=== PATIENT | female | born 1950 | race Caucasian/White ===

== ENCOUNTER → 2016-08-06 | Outpatient (CLI) | payer BC ==
[2016-08-06 09:17] LABS: BLOOD UREA NITROGEN 19 mg/dl (7-18); BUN/CREATININE RATIO 21.3 (10-20); CALCIUM 9.1 mg/dl (8.5-10.1); CARBON DIOXIDE 28 mmol/L (21-32); CHLORIDE 105 mmol/L (98-107); CHOLESTEROL 239 mg/dl (0-200); CREATININE 0.87 mg/dl (0.60-1.20); GLUCOSE 94 mg/dl (70-99); POTASSIUM 4.1 mmol/L (3.5-5.1); SODIUM 141 mmol/L (136-145); TRIGLYCERIDES 67 mg/dl (0-150); VERY LOW DENSITY LIPOPROT CALC 13 mg/dl
[2016-08-06 09:21] LABS: CHOLESTEROL/HDL RATIO 3.6; HDL CHOLESTEROL 67 mg/dl; LDL CHOLESTEROL CALCULATED 159 mg/dl
== END | disposition home or self-care (01) ==
LOC: C.LAB 07:48
PROVIDERS: ATTEND Internal Medicine
DX: E78.5 Hyperlipidemia, unspecified (principal); E55.9 Vitamin D deficiency, unspecified; M85.80 Other specified disorders of bone density and structure, unspecified site

== ENCOUNTER → 2016-12-06 | Outpatient (CLI) | payer BC ==
--- NOTE | 2016-12-09 08:25 | MAMMOGRAPHY REPORT ---
BILATERAL DIGITAL SCREENING MAMMOGRAM WITH CAD: 12/06/2016 CLINICAL HISTORY: Routine screening. TECHNIQUE: Bilateral CC, MLO and right XCCL views were obtained. Current study was also evaluated wi th a Computer Aided Detection (CAD) system. COMPARISON: Comparison is made to exams dated: 12/04/2015 mammogram, 12/02/2014 mammogram, 11/26/2013 ma mmogram, 11/23/2012 mammogram, 11/15/2011 mammogram, and 11/11/2010 mammogram - [facility] ter. BREAST COMPOSITION: The tissue of both breasts is heterogeneously dense, which may obscure small mas ses. FINDINGS: There are benign-appearing rounded calcifications scattered bilaterally. No new suspicious mass, architectural distortion or cluster of microcalcifications is seen. IMPRESSION: ACR BI-RADS CATEGORY 1: NEGATIVE There is no mammographic evidence of malignancy. A 1 year screening mammogram is recommended. The pa tient will receive written notification of the results. Approximately 10% of breast cancers are not detected with mammography. A negative mammographic report should not delay biopsy if a clinically suggestive mass is present. Ana Wynn M.D. ay/:12/06/2016 12:09:53 Community Ambassador: Eliceo DIANA(Dylan)(Laura), [facility] letter sent: Normal 1/2 BI-RADS Code: ACR BI-RADS Category 1: Negative
== END | disposition home or self-care (01) ==
LOC: C.MAMM 10:21
PROVIDERS: ATTEND Obstetrics & Gynecology
DX: Z12.31 Encounter for screening mammogram for malignant neoplasm of breast (principal)

== ENCOUNTER → 2017-05-27 | Outpatient (CLI) | payer OTHER ==
[2017-05-27 09:31] LABS: BLOOD UREA NITROGEN 17 mg/dl (7-18); CALCIUM 8.8 mg/dl (8.5-10.1); CARBON DIOXIDE 29 mmol/L (21-32); CREATININE 0.96 mg/dl (0.60-1.20); GLUCOSE 90 mg/dl (70-99); SODIUM 136 mmol/L (136-145)
[2017-05-27 09:34] LABS: CHOLESTEROL 253 mg/dl (0-200); LDL CHOLESTEROL CALCULATED 169 mg/dl
== END | disposition home or self-care (01) ==
LOC: C.LAB 08:48
PROVIDERS: ATTEND Internal Medicine
DX: Z11.59 Encounter for screening for other viral diseases (principal); E78.5 Hyperlipidemia, unspecified; E55.9 Vitamin D deficiency, unspecified

== ENCOUNTER → 2017-12-08 | Outpatient (CLI) | payer OTHER ==
--- NOTE | 2017-12-11 07:45 | MAMMOGRAPHY REPORT ---
BILATERAL DIGITAL SCREENING MAMMOGRAM TOMOSYNTHESIS WITH CAD: 12/08/2017 CLINICAL HISTORY: Routine screening. Patient has no complaints. TECHNIQUE: The study was acquired using full field digital technology and interpreted from soft copy. Breast tomosynthesis in addition to standard 2D mammography was performed. Current study was also ev aluated with a Computer Aided Detection (CAD) system. COMPARISON: Comparison is made to exams dated: 12/06/2016 mammogram, 12/04/2015 mammogram, 12/02/2014 m ammogram, 11/26/2013 mammogram, 11/11/2010 mammogram - [facility], and 10/22/2008. BREAST COMPOSITION: The tissue of both breasts is heterogeneously dense, which may obscure small mass es. FINDINGS: No suspicious masses, calcifications, or areas of architectural distortion are noted in either breast . There has been no significant interval change compared to prior exams. Note that positioning is so mewhat suboptimal due to pectus excavatum deformity of the chest. There is stable asymmetry in breas t size, right breast smaller than left. IMPRESSION: ACR BI-RADS CATEGORY 1: NEGATIVE There is no mammographic evidence of malignancy. A 1 year screening mammogram is recommended.( [id number]) The patient will receive written notification of the results. Some breast cancers are not detected with mammography. A negative mammographic report should not verónica y biopsy if a clinically suggestive mass is present. Lucita Lee M.D. /:12/08/2017 15:31:49 Bristle Machine Operator: Zahira [place], [facility] letter sent: Normal 1/2 BI-RADS Code: ACR BI-RADS Category 1: Negative
== END | disposition home or self-care (01) ==
LOC: C.MAMM 09:01
PROVIDERS: ATTEND Internal Medicine
DX: Z12.31 Encounter for screening mammogram for malignant neoplasm of breast (principal)

== ENCOUNTER 2020-09-12 15:16 | Inpatient (IN) ==
[2020-09-12] MEDS ORDERED: MoRPHine SULFATE 4 MG/ML 1 ML CARP\\VIAL IV PRN (15:36)
[2020-09-12] MEDS ORDERED: MoRPHine SULFATE 2 MG/ML CARP IV PRN ×2 (15:36→20:14)
[2020-09-12] MEDS ORDERED: ACETAMINOPHEN 1,000 MG/100 ML VIAL IV STA (15:38)
[2020-09-12] MEDS ORDERED: SODIUM CHLORIDE 0.9% 1000ML 1,000 ML IV SCH (15:45)
[2020-09-12 16:33] LABS: Basophils # (auto) 0.02 K/uL (0-0.2); Basophils % (auto) 0.3 %; Eosinophils # (auto) 0.02 K/uL (0-0.5); Eosinophils % (auto) 0.3 %; Hematocrit (blood only) 39.3 % (37-47); Hemoglobin 13.5 g/dL (12.0-16.0); Immature Granulocytes # (auto) 0.02 K/uL (0.00-0.02); Immature Granulocytes % (auto) 0.3 %; Mean Corpuscular Hemoglobin 30.7 pg (25-34); Mean Corpuscular Hgb Conc 34.4 g/dL (32-36); Mean Corpuscular Volume 89.3 fL (80-100); Mean Platelet Volume 10.3 fL (7.4-10.4); Monocytes # (auto) 0.39 K/uL (0.11-0.59); Monocytes % (auto) 4.9 %; Neutrophils # (auto) 6.74 K/uL (1.4-6.5); Neutrophils % (auto) 84.2 %; Platelet Count 287 K/uL (130-400); RDW Coefficient of Variation 13.3 % (11.5-14.5); RDW Standard Deviation 43.8 fL (36.4-46.3); White Blood Count 7.99 K/uL (4.8-10.8)
[2020-09-12 16:40] LABS: Appearance Urine Clear (Clear); Bilirubin Urine Negative (Negative); Blood Urine Negative (Negative); Color Urine Yellow; Glucose Urine UA Negative (Negative); Ketones Urine Negative (Negative); Leukocyte Esterase Urine Negative (Negative); Nitrite Urine Negative (Negative); Protein Urine Negative (Negative); Specific Gravity Urine 1.011 (1.000-1.030); Urobilinogen Urine Negative (Negative); pH Urine 8.5 (4.5-7.5)
[2020-09-12 16:45] LABS: Partial Thromboplastin Ratio 0.9; Partial Thromboplastin Time 23.1 Seconds (21.0-31.0); Prothrombin Time 10.3 Seconds (9.0-12.0)
[2020-09-12 16:50] LABS: Albumin Level 4.2 gm/dl (3.4-5.0); BUN Creatinine Ratio 24.2 (10-20); Calcium 8.6 mg/dl (8.5-10.1); Creatinine Clr Calc Pharmacy 63.6 ml/min; Est GFR (African American) 82.8; Est GFR (Non-African American) 71.4; Potassium 3.6 mmol/L (3.5-5.1)
[2020-09-12 16:53] LABS: Albumin Globulin Ratio 0.9 (0.9-2); Bilirubin,Total 0.5 mg/dl (0.2-1); Globulin 4.6 gm/dl (2.5-4.0); Total Protein 8.8 gm/dl (6.4-8.2)
--- NOTE | 2020-09-12 16:56 | XRay Report ---
SINGLE VIEW PELVIS; 2 VIEWS LEFT HIP CLINICAL HISTORY: Fall with left hip injury. FINDINGS: An AP view of the pelvis with AP and crosstable lateral views of the left hip are obtained. No prior studies are available for comparison at the time of dictation. The skeletal structures are osteopenic. No fracture is seen involving the right hip or the bony pelvis. There is a minimally disp laced intertrochanteric fracture of the left proximal femur with overlying soft tissue edema. Mild to moderate degenerative joint space narrowing is seen in both hips. Degenerative sclerosis is noted in the sacroiliac joints and pubic symphysis. A Monroy catheter is in place. A phlebolith is noted in th e right hemipelvis. Moderate fecal retention is seen throughout the imaged colon. IMPRESSION: Intertrochanteric fracture of the left femur as above. Electronically signed by: Reed Turner M.D. 09/12/2020 4:54 PM
--- NOTE | 2020-09-12 16:57 | XRay Report ---
SINGLE VIEW CHEST CLINICAL HISTORY: Fall. Hip fracture. Preoperative examination. FINDINGS: An AP, portable, semierect chest radiograph is obtained. No prior studies are available for comparison at the time of dictation. The cardiomediastinal silhouette is top normal for projection. There is mild bibasilar scarring/atelectasis. No airspace consolidation or large pleural effusion is identified. No pneumothorax is seen. The skeletal structures are osteopenic. The bony thorax is vini sly intact. IMPRESSION: No acute cardiopulmonary abnormality. ACT 112: Negative or not required by law. Electronically signed by: Reed Turner M.D. 09/12/2020 4:56 PM
--- NOTE | 2020-09-12 17:04 | Emergency Department Note ---
Impression & Plan Fracture of left hip, Laceration of skin of left palm, Fall ED Provider Note NAME: RUDDY BELTRAN AGE: 70 SEX: F ARRIVES VIA: Ambulance INFORMANT: Patient, ED PROVIDER(S): Kimo Deleon MD CHIEF COMPLAINT: Fall, left hip pain. PLAN: Disposition: Admit MEDICAL DECISION MAKING: The patient is a pleasant 70-year-old woman with a past medical history of hypertension, hyperlipidemia, vitamin D deficiency and osteopenia who presents emergency department with left hip pain with inability to walk following a mechanical fall where she tripped over the door to her comb fixer falling onto her left hip. She denies head strike or LOC. She is not on anticoagulation. She also reports having a minor cut to her hand which she cut when the ball she was holding broke as well. Prior today she denies any recent illness including fevers, chills, cough, congestion, GI or symptoms. She feels her Tetanus is UTD. On arrival patient is uncomfortable but no acute distress, afebrile stable vital signs. She has mild tenderness of the left inguinal region with external rotation and slight shortening of the left leg. Distal PMS intact. Left palm with 3.5 cm superficial laceration of the ulnar aspect of the left palm limited to dermis of palm with hemostasis. Plain films of the hip and pelvis confirmed a left intertrochanteric hip fracture. Chest x-ray negative for acute cardiopulmonary process. WBC, H/H and platelets within normal limits. Chemistry without metabolic acidosis. Electrolytes and LFTs unremarkable. UA without convincing evidence of infection. Case was discussed with Dr. Tatum [facility] on-call, and is aware of the patient. Case was discussed with KATHE Coles hospitalist, who will evaluate the patient for admission. Triage Nursing notes reviewed and agree them. Prior medical records reviewed Vital Signs: reviewed and remarkable for no significant abnormalities Differential diagnosis: Fracture, subluxation, dislocation, contusion, ligamentous injury, neurovascular, compartment syndrome, rhabdomyolysis, as well as other pathologies. ER treatment provided: See below. Diagnostics interpreted by me: Cardiac Monitoring: An order for continuous cardiac monitoring was placed and demonstrated NSR, 71 bpm, no ectopy. Laboratory studies: See below Imaging studies: See below Consultation(s): KATHE Coles hospitalist Dr. Tatum, [facility]. HPI: The patient is a pleasant 70-year-old woman with a past medical history of hypertension, hyperlipidemia, vitamin D deficiency and osteopenia who presents emergency department with left hip pain with inability to walk following a mechanical fall where she tripped over the door to her comb fixer falling onto her left hip. She also reports having a minor cut to her hand which she cut when the ball she was holding broke as well. Prior today she denies any recent illness including fevers, chills, cough, congestion, GI or symptoms. ROS: See above HPI for pertinent positives & negatives. A total of 10 systems reviewed and were otherwise negative. PAST MEDICAL HISTORY:See Below PAST SURGICAL HISTORY:See Below FAMILY HISTORY:See Below SOCIAL HISTORY:See Below HOME MEDICATIONS:See Below ALLERGIES:See Below VITALS:See Below PHYSICAL EXAMINATION: GENERAL: Awake, alert, uncomfortable-appearing, in no distress HENT: Normocephalic, atraumatic. Oropharynx unremarkable. EYES: Normal conjunctiva. Sclera non-icteric. NECK: Supple. No nuchal rigidity. FROM. No JVD. RESPIRATORY: Clear to auscultation. CARDIAC: Regular rate, normal rhythm. Extremities warm and well perfused. Pulses equal. ABDOMEN: Soft, non-distended. No tenderness to palpation. No rebound or guarding. No masses. RECTAL: Deferred. MUSCULOSKELETAL: Chest examination reveals no tenderness. The back is symmetrical on inspection without obvious abnormality. There is no CVA tenderness to palpation. No joint edema. UPPER EXTREMITIES: Left palm with 3.5 cm superficial laceration of the ulnar aspect of the left palm limited to dermis of palm with hemostasis. No contusion, deformity, tenderness of hand. FROM intact. LOWER EXTREMITIES: Mild tenderness of the left inguinal region with external rotation and slight shortening of the left leg. Distal PMS intact. Calves are equal size bilaterally and non-tender. No edema. No discoloration. NEURO: Normal sensorium. No sensory or motor deficits noted. SKIN: No rash or jaundice noted. ED Course: Procedures: Location: Ulnar aspect of left palm. Total length: 3.5cm Complexity: Simple (limited to dermis) Verbal consent was obtained after the risks and benefits were explained, including but not limited to bleeding, scarring, infection, pain, and bone/joint/nerve damage. At this time, the risks of the procedure are less than the risks of NOT performing the procedure. A time out was taken and the correct patient and site identified. Copious irrigation was performed using sterile saline. The wound was explored for foreign bodies and none found. Examination revealed no injury to deep structures such as tendons, bone, or significant blood vessels. Debridement was not performed. The wound edges were approximated using 6 steri-strips. Hemostasis and excellent approximation was achieved. Sterile dressing applied. Detailed wound care instructions and signs and symptoms of infection reviewed with the patient. No complications and the patient tolerated the procedure well. Kimo Deleon MD Past Med/Surg History Medical History (Updated 09/12/20 @ 23:53 by Kimo Deleon MD) Hyperlipidemia Hypertension Osteopenia Vitamin D deficiency Surgical History History of appendectomy History of colonoscopy No pertinent past surgical history Family History Aunt Breast cancer Uncle Myocardial infarction Mother Diabetes uncertain for sure but believe COPD (chronic obstructive pulmonary disease) Father Cancer Pancreatic Sister Vitamin D deficiency Denies family history of Ovarian cancer Prostate cancer Lung cancer Colorectal cancer Stroke Social History Smoking Status: Never smoker Second Hand Exposure: Yes; Hx Alcohol Use: No Hx Substance Use: No Preferred Language: Belarusian Communication Ability: Effective Visual Impairment: Limited Hearing Ability: Use of Hearing Aid Water Hauler Required: No Beliefs That Will Affect Care: None marital status: Current Living Situation: Family current occupational status: retired Other Information That Helps Us Care for You: Yes (Whole foods Plant based, no oil diet) Feels Safe at Home: Yes Safety Concerns: Feels Safe At This Time Childhood Exposure to Second-Hand Smoke: Yes Diet Comment: Whole food plant base caffeine: Yes (sometime Tea) Dental Care, Regularly: Yes Physical Activity Frequency: 5-6 Times per Week Seatbelt Use: always Sunscreen Use: Yes Assistive Devices: Glasses Allergies Allergies Allergy/AdvReac Type Severity Reaction Status Date / Time No Known Allergies Allergy Verified 09/12/20 18:17 Home Meds Home Medications Medication Instructions Recorded Confirmed alendronate 70 mg tablet 70 mg PO WK 04/28/20 09/12/20 Previous Rx's Medication Instructions Recorded ergocalciferol (vitamin D2) 1,250 50,000 units PO .COMPLEX #12 cap 11/19/19 mcg (50,000 unit) capsule hydrochlorothiazide 25 mg tablet 25 mg PO DAILY #30 tab 04/23/20 amlodipine 10 mg tablet 10 mg PO DAILY #90 tab 05/25/20 Results & Data (ED) Vital Signs Vital Signs - 24 hr 09/12/20 15:30 09/12/20 15:34 09/12/20 15:44 Temperature 36.8 C Temperature Source Oral Pulse Rate 86 85 85 Pulse Rate from SpO2 Sensor 86 87 Respiratory Rate 19 20 19 Respiratory Effort / Characteristics Non-Labored Spontaneous Respiratory Depth Normal Respiratory Pattern Regular Blood Pressure 158/91 H 153/82 H Blood Pressure Mean 113 105 Pulse Oximetry 100 100 100 Oxygen Delivery Method Room Air Sepsis Recent Fever Within 48 Hours No Sepsis New/Unexplained Change in Mental Status N/A Sepsis Action Taken by Nursing No Action Required 09/12/20 16:00 09/12/20 16:30 09/12/20 16:51 Temperature Temperature Source Pulse Rate 89 82 82 Pulse Rate from SpO2 Sensor 89 82 83 Respiratory Rate 20 25 H 22 Respiratory Effort / Characteristics Respiratory Depth Respiratory Pattern Blood Pressure 156/79 H 142/86 H Blood Pressure Mean 104 104 Pulse Oximetry 97 97 97 Oxygen Delivery Method Sepsis Recent Fever Within 48 Hours Sepsis New/Unexplained Change in Mental Status Sepsis Action Taken by Nursing 09/12/20 17:00 09/12/20 17:30 09/12/20 18:00 Temperature Temperature Source Pulse Rate 83 80 83 Pulse Rate from SpO2 Sensor 83 80 83 Respiratory Rate 21 22 19 Respiratory Effort / Characteristics Respiratory Depth Respiratory Pattern Blood Pressure 139/78 136/69 Blood Pressure Mean 98 91 Pulse Oximetry 94 94 94 Oxygen Delivery Method Sepsis Recent Fever Within 48 Hours Sepsis New/Unexplained Change in Mental Status Sepsis Action Taken by Nursing 09/12/20 18:30 Temperature Temperature Source Pulse Rate 81 Pulse Rate from SpO2 Sensor Respiratory Rate 18 Respiratory Effort / Characteristics Respiratory Depth Respiratory Pattern Blood Pressure 154/80 H Blood Pressure Mean 104 Pulse Oximetry 96 Oxygen Delivery Method Sepsis Recent Fever Within 48 Hours Sepsis New/Unexplained Change in Mental Status Sepsis Action Taken by Nursing Laboratory Data Attestation: I reviewed the patient's lab results. Result diagrams: 09/12/20 16:15 09/12/20 15:59 Lab Results 09/12/20 09/12/20 09/12/20 Range/Units 15:59 15:59 15:59 WBC (4.8-10.8) K/uL RBC (4.2-5.4) M/uL Hgb (12.0-16.0) g/dL Hct (37-47) % MCV (80-100) fL MCH (25-34) pg MCHC (32-36) g/dL RDW Std Deviation (36.4-46.3) fL RDW Coeff of Scar (11.5-14.5) % Plt Count (130-400) K/uL MPV (7.4-10.4) fL Immature Gran % (Auto) % Neut % (Auto) % Lymph % (Auto) % [place] % (Auto) % Eos % (Auto) % Baso % (Auto) % Neut # (Auto) (1.4-6.5) K/uL Lymph # (Auto) (1.2-3.4) K/uL [place] # (Auto) (0.11-0.59) K/uL Eos # (Auto) (0-0.5) K/uL Baso # (Auto) (0-0.2) K/uL Immature Gran # (Auto) (0.00-0.02) K/uL PT 10.3 (9.0-12.0) Seconds INR 1.0 (0.9-1.1) APTT 23.1 (21.0-31.0) Seconds PTT Ratio 0.9 Sodium 136 (136-145) mmol/L Potassium 3.6 (3.5-5.1) mmol/L Chloride 101 (98-107) mmol/L Carbon Dioxide 30 (21-32) mmol/L Anion Gap 5.0 (3-11) BUN 20 H (7-18) mg/dl Creatinine 0.83 (0.6-1.2) mg/dl Est Cr Clr Drug Dosing 63.6 ml/min Est GFR ( Amer) 82.8 Est GFR (Non-Af Amer) 71.4 BUN/Creatinine Ratio 24.2 H (10-20) Glucose 108 H (70-99) mg/dl Calcium 8.6 (8.5-10.1) mg/dl Total Bilirubin 0.5 (0.2-1) mg/dl AST 26 (15-37) U/L ALT 27 (12-78) U/L Alkaline Phosphatase 58 (45-117) U/L Total Protein 8.8 H (6.4-8.2) gm/dl Albumin 4.2 (3.4-5.0) gm/dl Globulin 4.6 H (2.5-4.0) gm/dl Albumin/Globulin Ratio 0.9 (0.9-2) Urine Color Urine Appearance (Clear) Urine pH (4.5-7.5) Ur Specific [place] (1.000-1.030) Urine Protein (Negative) Urine Glucose (UA) (Negative) Urine Ketones (Negative) Urine Blood (Negative) Urine Nitrite (Negative) Urine Bilirubin (Negative) Urine Urobilinogen (Negative) Ur Leukocyte Esterase (Negative) COVID-19 Eval Order SARS-CoV-2 (PCR) (Negative) Hepatitis C Ab Screen Neg (Neg) Influenza Type A (PCR) (Neg) Influenza Type B (PCR) (Neg) RSV (RT-PCR) (Neg) Blood Type Antibody Screen 09/12/20 09/12/20 09/12/20 Range/Units 16:15 16:15 16:18 WBC 7.99 (4.8-10.8) K/uL RBC 4.40 (4.2-5.4) M/uL Hgb 13.5 (12.0-16.0) g/dL Hct 39.3 (37-47) % MCV 89.3 (80-100) fL MCH 30.7 (25-34) pg MCHC 34.4 (32-36) g/dL RDW Std Deviation 43.8 (36.4-46.3) fL RDW Coeff of Scar 13.3 (11.5-14.5) % Plt Count 287 (130-400) K/uL MPV 10.3 (7.4-10.4) fL Immature Gran % (Auto) 0.3 % Neut % (Auto) 84.2 % Lymph % (Auto) 10.0 % [place] % (Auto) 4.9 % Eos % (Auto) 0.3 % Baso % (Auto) 0.3 % Neut # (Auto) 6.74 H (1.4-6.5) K/uL Lymph # (Auto) 0.80 L (1.2-3.4) K/uL [place] # (Auto) 0.39 (0.11-0.59) K/uL Eos # (Auto) 0.02 (0-0.5) K/uL Baso # (Auto) 0.02 (0-0.2) K/uL Immature Gran # (Auto) 0.02 (0.00-0.02) K/uL PT (9.0-12.0) Seconds INR (0.9-1.1) APTT (21.0-31.0) Seconds PTT Ratio Sodium (136-145) mmol/L Potassium (3.5-5.1) mmol/L Chloride (98-107) mmol/L Carbon Dioxide (21-32) mmol/L Anion Gap (3-11) BUN (7-18) mg/dl Creatinine (0.6-1.2) mg/dl Est Cr Clr Drug Dosing ml/min Est GFR ( Amer) Est GFR (Non-Af Amer) BUN/Creatinine Ratio (10-20) Glucose (70-99) mg/dl Calcium (8.5-10.1) mg/dl Total Bilirubin (0.2-1) mg/dl AST (15-37) U/L ALT (12-78) U/L Alkaline Phosphatase (45-117) U/L Total Protein (6.4-8.2) gm/dl Albumin (3.4-5.0) gm/dl Globulin (2.5-4.0) gm/dl Albumin/Globulin Ratio (0.9-2) Urine Color Yellow Urine Appearance Clear (Clear) Urine pH 8.5 H (4.5-7.5) Ur Specific [place] 1.011 (1.000-1.030) Urine Protein Negative (Negative) Urine Glucose (UA) Negative (Negative) Urine Ketones Negative (Negative) Urine Blood Negative (Negative) Urine Nitrite Negative (Negative) Urine Bilirubin Negative (Negative) Urine Urobilinogen Negative (Negative) Ur Leukocyte Esterase Negative (Negative) COVID-19 Eval Order SARS-CoV-2 (PCR) (Negative) Hepatitis C Ab Screen (Neg) Influenza Type A (PCR) (Neg) Influenza Type B (PCR) (Neg) RSV (RT-PCR) (Neg) Blood Type A Positive Antibody Screen NEGATIVE 04/24/21 04/24/21 Range/Units 17:20 17:20 WBC (4.8-10.8) K/uL RBC (4.2-5.4) M/uL Hgb (12.0-16.0) g/dL Hct (37-47) % MCV (80-100) fL MCH (25-34) pg MCHC (32-36) g/dL RDW Std Deviation (36.4-46.3) fL RDW Coeff of Scar (11.5-14.5) % Plt Count (130-400) K/uL MPV (7.4-10.4) fL Immature Gran % (Auto) % Neut % (Auto) % Lymph % (Auto) % [place] % (Auto) % Eos % (Auto) % Baso % (Auto) % Neut # (Auto) (1.4-6.5) K/uL Lymph # (Auto) (1.2-3.4) K/uL [place] # (Auto) (0.11-0.59) K/uL Eos # (Auto) (0-0.5) K/uL Baso # (Auto) (0-0.2) K/uL Immature Gran # (Auto) (0.00-0.02) K/uL PT (9.0-12.0) Seconds INR (0.9-1.1) APTT (21.0-31.0) Seconds PTT Ratio Sodium (136-145) mmol/L Potassium (3.5-5.1) mmol/L Chloride (98-107) mmol/L Carbon Dioxide (21-32) mmol/L Anion Gap (3-11) BUN (7-18) mg/dl Creatinine (0.6-1.2) mg/dl Est Cr Clr Drug Dosing ml/min Est GFR ( Amer) Est GFR (Non-Af Amer) BUN/Creatinine Ratio (10-20) Glucose (70-99) mg/dl Calcium (8.5-10.1) mg/dl Total Bilirubin (0.2-1) mg/dl AST (15-37) U/L ALT (12-78) U/L Alkaline Phosphatase (45-117) U/L Total Protein (6.4-8.2) gm/dl Albumin (3.4-5.0) gm/dl Globulin (2.5-4.0) gm/dl Albumin/Globulin Ratio (0.9-2) Urine Color Urine Appearance (Clear) Urine pH (4.5-7.5) Ur Specific [place] (1.000-1.030) Urine Protein (Negative) Urine Glucose (UA) (Negative) Urine Ketones (Negative) Urine Blood (Negative) Urine Nitrite (Negative) Urine Bilirubin (Negative) Urine Urobilinogen (Negative) Ur Leukocyte Esterase (Negative) COVID-19 Eval Order CovFluRsv at [facility] SARS-CoV-2 (PCR) NEGATIVE (Negative) Hepatitis C Ab Screen (Neg) Influenza Type A (PCR) Negative (Neg) Influenza Type B (PCR) Negative (Neg) RSV (RT-PCR) Negative (Neg) Blood Type Antibody Screen Administered Medications Lactated Ringer's (Lr) 1,000 mls @ 75 mls/hr IV .[id number] MARIBETH Stop: 10/12/20 20:13 Last Admin: 09/12/20 20:44 Dose: 75 mls/hr Documented by: [id number] Senna/Docusate Sodium (Docusate Sodium/Senna 50/8.6mg Tab) 2 tab PO HS MARIBETH Stop: 10/12/20 20:59 Last Admin: 09/12/20 22:25 Dose: 2 tab Documented by: [id number] Discontinued Medications Sodium Chloride (Nss 1000ml) 1,000 mls @ 75 mls/hr IV .[id number] MARIBETH Stop: 09/13/20 05:04 Last Infusion: 09/12/20 20:00 Dose: 0 mls/hr Documented by: [id number] Admin: 09/12/20 16:51 Dose: 75 mls/hr Documented by: [id number] Acetaminophen (Ofirmev) 1,000 mg in 100 mls @ 400 mls/hr IV NOW STA Stop: 09/12/20 15:52 Last Infusion: 09/12/20 17:45 Dose: 0 mls/hr Documented by: [id number] Admin: 09/12/20 16:52 Dose: 400 mls/hr Documented by: [id number] Morphine Sulfate (Morphine Sulfate 4 Mg/Ml 1 Ml Carp\Vial) 4 mg IV Q1H PRN PRN Reason: Severe Pain (Rating 7,8,9,10) Stop: 09/26/20 15:35 Last Admin: 09/12/20 16:51 Dose: 4 mg Documented by: [id number] Imaging Data Radiologist's Impression: Chest X-Ray 09/12/20 15:36 SINGLE VIEW CHEST CLINICAL HISTORY: Fall. Hip fracture. Preoperative examination. FINDINGS: An AP, portable, semierect chest radiograph is obtained. No prior studies are available for comparison at the time of dictation. The ca rdiomediastinal silhouette is top normal for projection. There is mild bibasilar scarring/atelectasis. No airspace consolidation or large pleural effusion is identified. No pneumothorax is seen. The skeletal structures are osteopenic. The bony thorax is grossly intact. IMPRESSION: No acute cardiopulmonary abnormality. ACT 112: Negative or not required by law. Electronically signed by: Reed Turner M.D. 09/12/2020 4:56 PM Hip/Pelvis X-Ray 09/12/20 15:36 SINGLE VIEW PELVIS; 2 VIEWS LEFT HIP CLINICAL HISTORY: Fall with left hip injury. FINDINGS: An AP view of the pelvis with AP and crosstable lateral views of the left hip are obtained. No prior studies are available for comparison at the time of dictation. The skeletal structures are osteopenic. No fracture is seen involving the right hip or the bony pelvis. There is a minimally displaced intertrochanteric fracture of the left proximal femur with overlying soft tissue edema. Mild to moderate degenerative joint space narrowing is seen in both hips. Degenerative sclerosis is noted in the sacroiliac joints and pubic symphysis. A Monroy catheter is in place. A phlebolith is noted in the right hemipelvis. Moderate fecal retention is seen throughout the imaged colon. IMPRESSION: Intertrochanteric fracture of the left femur as above. Electronically signed by: Reed Turner M.D. 09/12/2020 4:54 PM Discharge Plan Visit Data Chief Complaint: Hip Pain Stated Complaint: FALL, R HIP PAIN ED Provider: Kimo Deleon Discharge Problem: Fracture of left hip, Laceration of skin of left palm, Fall Patient Disposition: Admitted As Inpatient Discharge Instructions Interventions: ED Discharge Assessment Last Done: 09/12/20 19:39 Discharge Problem: Fracture of left hip Qualifiers: Encounter type: initial encounter Fracture type: closed Qualified Code(s): S72.002A - Fracture of unspecified part of neck of left femur, initial encounter for closed fracture Laceration of skin of left palm Qualifiers: Encounter type: initial encounter Qualified Code(s): S61.412A - Laceration without foreign body of left hand, initial encounter Fall Qualifiers: Encounter type: initial encounter Qualified Code(s): W19.XXXA - Unspecified fall, initial encounter
[2020-09-12 18:10] LABS: Influenza A virus by PCR Negative (Neg); Influenza B virus by PCR Negative (Neg); RSV by PCR Negative (Neg); SARS CoV2 RNA(COVID-19) InHosp NEGATIVE (Negative)
--- NOTE | 2020-09-12 18:43 | History & Physical Report ---
Date of Service September 12, 2020 Assessment & Plan (1) Fracture of left hip: Acute left intertrochanteric proximal femur fracture - NPO after midnight- surgical care per ORTHO - Pain control- Tylenol, Morphine 2mg IV q2, [place] 5/325 2 q4 PRN - Alvares to gravity - SCD's TEDS- chemoprophylaxis postoperatively (2) Hypertension: Well controlled on single agent amlodipine (3) Hyperlipidemia: Recheck lipids in morning - diet and exercise in the morning (4) Vitamin D deficiency: Patient Vitamin D2 every other week (5) Osteoporosis: on Fosamax- Ortho hold for 3 months History of Present Illness Chief Complaint: fall Primary Care Provider: Ezequiel Gonzalez MD 70 YOF with past medical history of osteopetrosis, on vitamin D supplementation, and started on Fosamax in 01/2020, HLD, HTN. Her HLD is controlled with diet on plant based diet, she also is active particpant in the [employer] program, which she has done to help her lose weight. 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 She turned to go put a bowl away, forgetting that the door was open, and she tripped over the door to the technical sales advisor. She landed directly on her left hip and the bowl she had broke cutting her left palmar surface. Her TD was in 204. She had immediate pain to the hip without any NV complaints. She was able to scoot herself to a carpeted area and wait for her . He came back in the house about 20 min later and they called 911. In the EMD the patient had a hip/pelvis Xray that showed left intertrochanteric proximal femur fracture, she had a alvares catheter placed, her hand was dressed with steri strips by EMD Dr. Deleon, received Tylenol 1GM IV and 6 mg morphine total. Her pain is controlled, her left leg is laterally rotated, and hemodynamically stable. Orthopaedics was evaluating the patient as I was leaving, as they have been already consulted. The patient will be admitted to Med/Surg floor, VTE prophy, pain control, NPO after mn. Patient had an ECHO in 2019 for HTN- with EF 65-70%, normal wall motion and normal MV and AV. Allergies Allergy/AdvReac Type Severity Reaction Status Date / Time No Known Allergies Allergy Verified 09/12/20 18:17 Home Medications Medication Instructions Recorded Confirmed Type ergocalciferol (vitamin D2) 1,250 50,000 units PO .COMPLEX #12 cap 11/19/19 09/12/20 Rx mcg (50,000 unit) capsule hydrochlorothiazide 25 mg tablet 25 mg PO DAILY #30 tab 04/23/20 09/12/20 Rx alendronate 70 mg tablet 70 mg PO WK 04/28/20 09/12/20 History amlodipine 10 mg tablet 10 mg PO DAILY #90 tab 05/25/20 09/12/20 Rx Past Med/Surg History Medical History Hyperlipidemia Hypertension Osteopenia Vitamin D deficiency Surgical History History of appendectomy History of colonoscopy No pertinent past surgical history Family History Aunt Breast cancer Uncle Myocardial infarction Mother Diabetes uncertain for sure but believe COPD (chronic obstructive pulmonary disease) Father Cancer Pancreatic Sister Vitamin D deficiency Denies family history of Ovarian cancer Prostate cancer Lung cancer Colorectal cancer Stroke Social History Smoking Status: Never smoker Second Hand Exposure: Yes; Hx Alcohol Use: No Hx Substance Use: No Preferred Language: [place] Citizen Visual Impairment: Limited Hearing Ability: Use of Hearing Aid Teaching Aide Required: No Beliefs That Will Affect Care: None marital status: Current Living Situation: Spouse current occupational status: retired Feels Safe at Home: Yes Childhood Exposure to Second-Hand Smoke: Yes Diet Comment: Whole food plant base caffeine: Yes (sometime Tea) Dental Care, Regularly: Yes Physical Activity Frequency: 5-6 Times per Week Seatbelt Use: always Sunscreen Use: Yes Review of Systems Review of Systems: REVIEW OF SYSTEMS: Constitutional: No fever, sweats or chills Eyes: No diplopia, no worsening or blurred vision ENT: normal hearing, no trouble swallowing Respiratory: No cough, sputum, dyspnea at rest or on exertion Cardiovascular: No chest pain, tightness or palpitations Abdomen: No pain, nausea, vomiting, diarrhea or constipation Musculoskeletal:(+) per HPI joint pain, NO calf pain, swelling Neurologic: No weakness, numbness/tingling, or balance problems Psychiatric: No anxiety or depression Skin: No rash or itch Physical Exam Physical Exam: PHYSICAL EXAM: General: awake, alert, no apparent distress, comfortable Head: Normocephalic, atraumatic ENT: PERRL, EOMI, no pharyngeal exudate, mucous membranes moist Neuro: AAO x 3, speech clear and appropriate, strength intact bilaterally 5/5, sensation intact and equal all extremities and dermatomes, no pronator drift Chest: equal rise and fall of the chest, no accessory muscle use, no heaves or thrills, Clear to auscultation, on room air, Cardiac: Regular rate and rhythm, telemetry reviewed, skin warm dry, cap refill <3 seconds, peripheral pulses +2 no JVD, no murmur, no JVD, no edema GI: NABS x 4 quadrants, soft, nontender to palpation, no rebound, guarding or tenderness : alvares catheter placed draining light yellow urine, no pain, no CVA tenderness, Extremities: Normal inspection, no peripheral edema or erythema, calfs nontender to palpation Psych: Normal mood and affect Skin: no rash or erythema Results & Data Results & Data ([facility]) Vital Signs (Past 12 Hours) Vital Signs Temp Pulse Resp BP Pulse Ox 09/12/20 18:00 83 19 94 09/12/20 17:30 80 22 136/69 94 09/12/20 17:00 83 21 139/78 94 09/12/20 16:51 82 22 142/86 H 97 09/12/20 16:30 82 25 H 97 09/12/20 16:00 89 20 156/79 H 97 09/12/20 15:44 85 19 100 09/12/20 15:34 36.8 C 85 20 153/82 H 100 09/12/20 15:30 86 19 158/91 H 100 Laboratory Results Abnormal lab results 09/12/20 09/12/20 09/12/20 Range/Units 15:59 16:15 16:15 Neut # (Auto) 6.74 H (1.4-6.5) K/uL Lymph # (Auto) 0.80 L (1.2-3.4) K/uL BUN 20 H (7-18) mg/dl BUN/Creatinine Ratio 24.2 H (10-20) Glucose 108 H (70-99) mg/dl Total Protein 8.8 H (6.4-8.2) gm/dl Globulin 4.6 H (2.5-4.0) gm/dl Urine pH 8.5 H (4.5-7.5) Diagnostic Findings SINGLE VIEW PELVIS; 2 VIEWS LEFT HIP CLINICAL HISTORY: Fall with left hip injury. FINDINGS: An AP view of the pelvis with AP and crosstable lateral views of the left hip are obtained. No prior studies are available for comparison at the time of dictation. The skeletal structures are osteopenic. No fracture is seen involving the right hip or the bony pelvis. There is a minimally displaced intertrochanteric fracture of the left proximal femur with overlying soft tissue edema. Mild to moderate degenerative joint space narrowing is seen in both hips. Degenerative sclerosis is noted in the sacroiliac joints and pubic symphysis. A Alvares catheter is in place. A phlebolith is noted in the right hemipelvis. Moderate fecal retention is seen throughout the imaged colon. IMPRESSION: Intertrochanteric fracture of the left femur as above. SINGLE VIEW CHEST CLINICAL HISTORY: Fall. Hip fracture. Preoperative examination. FINDINGS: An AP, portable, semierect chest radiograph is obtained. No prior studies are available for comparison at the time of dictation. The cardiomediastinal silhouette is top normal for projection. There is mild bibasilar scarring/atelectasis. No airspace consolidation or large pleural effusion is identified. No pneumothorax is seen. The skeletal structures are osteopenic. The bony thorax is grossly intact. IMPRESSION: No acute cardiopulmonary abnormality. Medications Administered Sodium Chloride (Nss 1000ml) 1,000 mls @ 75 mls/hr IV .[id number] [facility] Stop: 09/13/20 05:04 Last Admin: 09/12/20 16:51 Dose: 75 mls/hr Documented by: [id number] Morphine Sulfate (Morphine Sulfate 4 Mg/Ml 1 Ml Carp\Vial) 4 mg IV Q1H PRN PRN Reason: Severe Pain (Rating 7,8,9,10) Stop: 09/26/20 15:35 Last Admin: 09/12/20 16:51 Dose: 4 mg Documented by: [id number] Discontinued Medications Acetaminophen (Ofirmev) 1,000 mg in 100 mls @ 400 mls/hr IV NOW STA Stop: 09/12/20 15:52 Last Infusion: 09/12/20 17:45 Dose: 0 mls/hr Documented by: [id number] Admin: 09/12/20 16:52 Dose: 400 mls/hr Documented by: [id number] Home Medications ergocalciferol (vitamin D2) 1,250 mcg (50,000 unit) capsule 50,000 units PO .COMPLEX #12 cap 11/19/19 [Rx Confirmed 09/12/20] hydrochlorothiazide 25 mg tablet 25 mg PO DAILY #30 tab 04/23/20 [Rx Confirmed 09/12/20] alendronate 70 mg tablet 70 mg PO WK 04/28/20 [History Confirmed 09/12/20] amlodipine 10 mg tablet 10 mg PO DAILY #90 tab 05/25/20 [Rx Confirmed 09/12/20] Active Medications Sodium Chloride (Nss 1000ml) 1,000 mls @ 75 mls/hr IV .[id number] MARIBETH Stop: 09/13/20 05:04 Last Admin: 09/12/20 16:51 Dose: 75 mls/hr Documented by: Morphine Sulfate (Morphine Sulfate 2 Mg/Ml Carp) 2 mg IV Q1H PRN PRN Reason: Moderate Pain (Rating 3,4,5,6) Stop: 09/26/20 15:35 Morphine Sulfate (Morphine Sulfate 4 Mg/Ml 1 Ml Carp\Vial) 4 mg IV Q1H PRN PRN Reason: Severe Pain (Rating 7,8,9,10) Stop: 09/26/20 15:35 Last Admin: 09/12/20 16:51 Dose: 4 mg Documented by: Code Status & VTE Plan Code Status CODE: FULL VTE: TEDS/SCD's to unaffected leg, then chemoprophylaxis postoperative Supervising Physician Co-Signing Physician Notes I supervised ARCHANA Lazar on this admission. I examined the patient today independently of him. I discussed the plan of care with him with the plan being as written in his note except for any following changes/exceptions: None. 70yo F w/ HTN who presents with hip fracture after a mechanical fall. Presently in less pain with ED pain meds. Seen in the room with Dr. Tatum with plan for OR tomorrow AM. PG Care Time/CCT Total # of Minutes Spent Total Time Spent with Patient: Total time spent is greater than 50% in coordination of care (as documented) at patient's floor/unit and/or counseling patient: Coding Level of Care Code 07135 Initial Inpt Care Lvl 3 Diagnoses Fracture of left hip S72.002A Encounter type: initial encounter Fracture type: closed Hypertension I10 Hypertension type: essential hypertension Hyperlipidemia E78.5 Hyperlipidemia type: unspecified Vitamin D deficiency E55.9 Osteoporosis M81.0 Osteoporosis type: unspecified Presence of current pathological fracture: without current pathological fracture (1) Osteoporosis Osteoporosis type: unspecified Presence of current pathological fracture: without current pathological fracture Qualified Code(s): M81.0 - Age-related osteoporosis without current pathological fracture (2) Hyperlipidemia Hyperlipidemia type: unspecified Qualified Code(s): E78.5 - Hyperlipidemia, unspecified (3) Fracture of left hip Encounter type: initial encounter Fracture type: closed Qualified Code(s): S72.002A - Fracture of unspecified part of neck of left femur, initial encounter for closed fracture (4) Hypertension Hypertension type: essential hypertension Qualified Code(s): I10 - Essential (primary) hypertension
--- NOTE | 2020-09-12 19:56 | Orthopedic Consultation ---
Date of Consultation September 12, 2020 Assessment & Plan (1) Fracture of left hip: The patient is a 70 year old female who sustained a left hip fracture from a ground level fall. The patients treatment options of conservative versus surgical intervention were discussed. Since the patient was an ambulatory prior to the injury and to avoid the risks of bed sores, pulmonary complications, and to give the best chance for ambulation, I recommended surgery. The patient understands the risks of surgery, which include but are not limited to: bleeding, infection, re-operation, damage to nerves and arteries, continued pain, failure of the hardware, mal-union, non-union, DVT, and . In a ddition the patient is aware of the 20-30% morbidity associated with hip fracture for up to 1 year following a hip fracture. The patient has elected to proceed with surgery and the informed consent was signed. The patient understands all of these instructions and explanations, all of their questions have been satisfactorily addressed. Placed on the add-on schedule for tomorrow. Will proceed with surgery tomorrow if medically stable. Patient may eat now from an ortho standpoint, but will be NPO after midnight. The patient will be NWB. TEDs and foot pumps to LLE. Antibiotics stationary boiler fireman to OR. Present on Admission?: Yes History of Present Illness Reason for Consultation: Left hip fracture Requesting Physician: Radha Tatum MD History of Present Illness The patient is a pleasant 70 year female ambulator, who tripped over [facility] door, injuring her left hip. Now unable to bare weight. She was brought to the ED where x-rays were obtained and I was consulted for further evaluation and treatment. Denies any other injuries, CP, SOB, LOC. Allergies Allergy/AdvReac Type Severity Reaction Status Date / Time No Known Allergies Allergy Verified 09/12/20 18:17 Home Medications Medication Instructions Recorded Confirmed Type ergocalciferol (vitamin D2) 1,250 50,000 units PO .COMPLEX #12 cap 11/19/19 09/12/20 Rx mcg (50,000 unit) capsule hydrochlorothiazide 25 mg tablet 25 mg PO DAILY #30 tab 04/23/20 09/12/20 Rx alendronate 70 mg tablet 70 mg PO WK 04/28/20 09/12/20 History amlodipine 10 mg tablet 10 mg PO DAILY #90 tab 05/25/20 09/12/20 Rx Patient History Medical History Hyperlipidemia Hypertension Osteopenia Vitamin D deficiency Surgical History History of appendectomy History of colonoscopy No pertinent past surgical history Family History Aunt Breast cancer Uncle Myocardial infarction Mother Diabetes uncertain for sure but believe COPD (chronic obstructive pulmonary disease) Father Cancer Pancreatic Sister Vitamin D deficiency Denies family history of Ovarian cancer Prostate cancer Lung cancer Colorectal cancer Stroke Social History Smoking Status: Never smoker Second Hand Exposure: Yes; Hx Alcohol Use: No Hx Substance Use: No Preferred Language: [place]ic Visual Impairment: Limited Hearing Ability: Use of Hearing Aid Resource Agent Required: No Beliefs That Will Affect Care: None marital status: Current Living Situation: Spouse current occupational status: retired Feels Safe at Home: Yes Childhood Exposure to Second-Hand Smoke: Yes Diet Comment: Whole food plant base caffeine: Yes (sometime Tea) Dental Care, Regularly: Yes Physical Activity Frequency: 5-6 Times per Week Seatbelt Use: always Sunscreen Use: Yes Review of Systems Review of Systems: All systems reviewed & are unremarkable except as noted in HPI & below Physical Exam Physical Exam: LLE: Shortened and externally rotated. Sensation to light touch is intact. 2+ DP pulse. Wiggling toes and ankle. Calf is soft and non-tender. + Tender to palpation left hip. Results & Data ([facility]) Vital Signs (Past 12 Hours) Vital Signs Temp Pulse Resp BP Pulse Ox 09/12/20 19:00 80 17 138/79 09/12/20 18:30 81 18 154/80 H 96 09/12/20 18:00 83 19 94 09/12/20 17:30 80 22 136/69 94 09/12/20 17:00 83 21 139/78 94 09/12/20 16:51 82 22 142/86 H 97 09/12/20 16:30 82 25 H 97 09/12/20 16:00 89 20 156/79 H 97 09/12/20 15:44 85 19 100 09/12/20 15:34 36.8 C 85 20 153/82 H 100 09/12/20 15:30 86 19 158/91 H 100 Laboratory Results 09/12/20 09/12/20 09/12/20 Range/Units 17:20 17:20 16:18 WBC (4.8-10.8) K/uL RBC (4.2-5.4) M/uL Hgb (12.0-16.0) g/dL Hct (37-47) % MCV (80-100) fL MCH (25-34) pg MCHC (32-36) g/dL RDW Std Deviation (36.4-46.3) fL RDW Coeff of Scar (11.5-14.5) % Plt Count (130-400) K/uL MPV (7.4-10.4) fL Immature Gran % (Auto) % Neut % (Auto) % Lymph % (Auto) % [place] % (Auto) % Eos % (Auto) % Baso % (Auto) % Neut # (Auto) (1.4-6.5) K/uL Lymph # (Auto) (1.2-3.4) K/uL [place] # (Auto) (0.11-0.59) K/uL Eos # (Auto) (0-0.5) K/uL Baso # (Auto) (0-0.2) K/uL Immature Gran # (Auto) (0.00-0.02) K/uL PT (9.0-12.0) Seconds INR (0.9-1.1) APTT (21.0-31.0) Seconds PTT Ratio Sodium (136-145) mmol/L Potassium (3.5-5.1) mmol/L Chloride (98-107) mmol/L Carbon Dioxide (21-32) mmol/L Anion Gap (3-11) BUN (7-18) mg/dl Creatinine (0.6-1.2) mg/dl Est Cr Clr Drug Dosing ml/min Est GFR ( Amer) Est GFR (Non-Af Amer) BUN/Creatinine Ratio (10-20) Glucose (70-99) mg/dl Calcium (8.5-10.1) mg/dl Total Bilirubin (0.2-1) mg/dl AST (15-37) U/L ALT (12-78) U/L Alkaline Phosphatase (45-117) U/L Total Protein (6.4-8.2) gm/dl Albumin (3.4-5.0) gm/dl Globulin (2.5-4.0) gm/dl Albumin/Globulin Ratio (0.9-2) Urine Color Urine Appearance (Clear) Urine pH (4.5-7.5) Ur Specific [place] (1.000-1.030) Urine Protein (Negative) Urine Glucose (UA) (Negative) Urine Ketones (Negative) Urine Blood (Negative) Urine Nitrite (Negative) Urine Bilirubin (Negative) Urine Urobilinogen (Negative) Ur Leukocyte Esterase (Negative) COVID-19 Eval Order CovFluRsv at [facility] SARS-CoV-2 (PCR) NEGATIVE (Negative) Influenza Type A (PCR) Negative (Neg) Influenza Type B (PCR) Negative (Neg) RSV (RT-PCR) Negative (Neg) Blood Type A Positive Antibody Screen NEGATIVE 09/12/20 09/12/20 09/12/20 Range/Units 16:15 16:15 15:59 WBC 7.99 (4.8-10.8) K/uL RBC 4.40 (4.2-5.4) M/uL Hgb 13.5 (12.0-16.0) g/dL Hct 39.3 (37-47) % MCV 89.3 (80-100) fL MCH 30.7 (25-34) pg MCHC 34.4 (32-36) g/dL RDW Std Deviation 43.8 (36.4-46.3) fL RDW Coeff of Scar 13.3 (11.5-14.5) % Plt Count 287 (130-400) K/uL MPV 10.3 (7.4-10.4) fL Immature Gran % (Auto) 0.3 % Neut % (Auto) 84.2 % Lymph % (Auto) 10.0 % Terry % (Auto) 4.9 % Eos % (Auto) 0.3 % Baso % (Auto) 0.3 % Neut # (Auto) 6.74 H (1.4-6.5) K/uL Lymph # (Auto) 0.80 L (1.2-3.4) K/uL Terry # (Auto) 0.39 (0.11-0.59) K/uL Eos # (Auto) 0.02 (0-0.5) K/uL Baso # (Auto) 0.02 (0-0.2) K/uL Immature Gran # (Auto) 0.02 (0.00-0.02) K/uL PT (9.0-12.0) Seconds INR (0.9-1.1) APTT (21.0-31.0) Seconds PTT Ratio Sodium 136 (136-145) mmol/L Potassium 3.6 (3.5-5.1) mmol/L Chloride 101 (98-107) mmol/L Carbon Dioxide 30 (21-32) mmol/L Anion Gap 5.0 (3-11) BUN 20 H (7-18) mg/dl Creatinine 0.83 (0.6-1.2) mg/dl Est Cr Clr Drug Dosing 63.6 ml/min Est GFR ( Amer) 82.8 Est GFR (Non-Af Amer) 71.4 BUN/Creatinine Ratio 24.2 H (10-20) Glucose 108 H (70-99) mg/dl Calcium 8.6 (8.5-10.1) mg/dl Total Bilirubin 0.5 (0.2-1) mg/dl AST 26 (15-37) U/L ALT 27 (12-78) U/L Alkaline Phosphatase 58 (45-117) U/L Total Protein 8.8 H (6.4-8.2) gm/dl Albumin 4.2 (3.4-5.0) gm/dl Globulin 4.6 H (2.5-4.0) gm/dl Albumin/Globulin Ratio 0.9 (0.9-2) Urine Color Yellow Urine Appearance Clear (Clear) Urine pH 8.5 H (4.5-7.5) Ur Specific [place] 1.011 (1.000-1.030) Urine Protein Negative (Negative) Urine Glucose (UA) Negative (Negative) Urine Ketones Negative (Negative) Urine Blood Negative (Negative) Urine Nitrite Negative (Negative) Urine Bilirubin Negative (Negative) Urine Urobilinogen Negative (Negative) Ur Leukocyte Esterase Negative (Negative) COVID-19 Eval Order SARS-CoV-2 (PCR) (Negative) Influenza Type A (PCR) (Neg) Influenza Type B (PCR) (Neg) RSV (RT-PCR) (Neg) Blood Type Antibody Screen 09/12/20 Range/Units 15:59 WBC (4.8-10.8) K/uL RBC (4.2-5.4) M/uL Hgb (12.0-16.0) g/dL Hct (37-47) % MCV (80-100) fL MCH (25-34) pg MCHC (32-36) g/dL RDW Std Deviation (36.4-46.3) fL RDW Coeff of Scar (11.5-14.5) % Plt Count (130-400) K/uL MPV (7.4-10.4) fL Immature Gran % (Auto) % Neut % (Auto) % Lymph % (Auto) % Terry % (Auto) % Eos % (Auto) % Baso % (Auto) % Neut # (Auto) (1.4-6.5) K/uL Lymph # (Auto) (1.2-3.4) K/uL Terry # (Auto) (0.11-0.59) K/uL Eos # (Auto) (0-0.5) K/uL Baso # (Auto) (0-0.2) K/uL Immature Gran # (Auto) (0.00-0.02) K/uL PT 10.3 (9.0-12.0) Seconds INR 1.0 (0.9-1.1) APTT 23.1 (21.0-31.0) Seconds PTT Ratio 0.9 Sodium (136-145) mmol/L Potassium (3.5-5.1) mmol/L Chloride (98-107) mmol/L Carbon Dioxide (21-32) mmol/L Anion Gap (3-11) BUN (7-18) mg/dl Creatinine (0.6-1.2) mg/dl Est Cr Clr Drug Dosing ml/min Est GFR ( Amer) Est GFR (Non-Af Amer) BUN/Creatinine Ratio (10-20) Glucose (70-99) mg/dl Calcium (8.5-10.1) mg/dl Total Bilirubin (0.2-1) mg/dl AST (15-37) U/L ALT (12-78) U/L Alkaline Phosphatase (45-117) U/L Total Protein (6.4-8.2) gm/dl Albumin (3.4-5.0) gm/dl Globulin (2.5-4.0) gm/dl Albumin/Globulin Ratio (0.9-2) Urine Color Urine Appearance (Clear) Urine pH (4.5-7.5) Ur Specific [place] (1.000-1.030) Urine Protein (Negative) Urine Glucose (UA) (Negative) Urine Ketones (Negative) Urine Blood (Negative) Urine Nitrite (Negative) Urine Bilirubin (Negative) Urine Urobilinogen (Negative) Ur Leukocyte Esterase (Negative) COVID-19 Eval Order SARS-CoV-2 (PCR) (Negative) Influenza Type A (PCR) (Neg) Influenza Type B (PCR) (Neg) RSV (RT-PCR) (Neg) Blood Type Antibody Screen Diagnostic Findings I reviewed the radiographs AP pelvis and AP and lateral Left hip shows an intertrochanteric hip fracture, displaced. (1) Fracture of left hip Encounter type: initial encounter Fracture type: closed Qualified Code(s): S72.002A - Fracture of unspecified part of neck of left femur, initial encounter for closed fracture
[2020-09-12] MEDS ORDERED: LACTATED RINGER'S 1,000 ML IV SCH (20:14)
[2020-09-12] MEDS ORDERED: MAGNESIUM HYDROXIDE SUSP 30 ML UDC PO PRN (20:14)
[2020-09-12] MEDS ORDERED: bisacodyL 10 MG SUPP PR PRN (20:14)
[2020-09-12] MEDS ORDERED: NALOXONE HCL 0.4 MG/1 ML VIAL/CARP IV PRN (20:14)
[2020-09-12] MEDS: DOCUSATE SODIUM/SENNA 50/8.6MG TAB PO SCH (22:25)
[2020-09-13 05:52] LABS: Basophils # (auto) 0.02 K/uL (0-0.2); Basophils % (auto) 0.2 %; Eosinophils # (auto) 0.02 K/uL (0-0.5); Eosinophils % (auto) 0.2 %; Hemoglobin 13.1 g/dL (12.0-16.0); Immature Granulocytes # (auto) 0.02 K/uL (0.00-0.02); Immature Granulocytes % (auto) 0.2 %; Lymphocytes # (auto) 0.81 K/uL (1.2-3.4); Lymphocytes % (auto) 9.6 %; Mean Corpuscular Hemoglobin 30.6 pg (25-34); Mean Corpuscular Hgb Conc 34.5 g/dL (32-36); Mean Corpuscular Volume 88.8 fL (80-100); Monocytes # (auto) 0.74 K/uL (0.11-0.59); Monocytes % (auto) 8.8 %; Neutrophils # (auto) 6.81 K/uL (1.4-6.5); Platelet Count 262 K/uL (130-400); RDW Coefficient of Variation 13.3 % (11.5-14.5); RDW Standard Deviation 43.5 fL (36.4-46.3); Red Blood Count 4.28 M/uL (4.2-5.4); White Blood Count 8.42 K/uL (4.8-10.8)
[2020-09-13 06:31] LABS: Calcium 8.5 mg/dl (8.5-10.1); Creatinine Clr Calc Pharmacy 77.7 ml/min; Est GFR (African American) 102.7; Est GFR (Non-African American) 88.6; Magnesium 2.1 mg/dl (1.8-2.4); Potassium 3.4 mmol/L (3.5-5.1)
[2020-09-13] MEDS ORDERED: DEXAMETHASONE SOD INJ 4 MG/ML VIAL ONE (07:07)
[2020-09-13] MEDS ORDERED: PROPOFOL IV EMULSION 10 MG/ML 20 ML VIAL IV ONE ×2 (07:07→15:48)
[2020-09-13] MEDS ORDERED: ONDANSETRON INJ 2 MG/ML 2 ML VIAL ONE (07:07)
[2020-09-13] MEDS ORDERED: LIDOCAINE HCL 2% 2 ML VIAL/AMP(20MG/ML) INFIL ONE ×2 (07:07→15:48)
[2020-09-13] MEDS ORDERED: fentaNYL citrate 100 MCG/2 ML VIAL ONE (07:07)
[2020-09-13] MEDS ORDERED: MIDAZOLAM HCL 1 MG/ML 2ML VIAL ONE ×2 (07:07→15:48)
--- NOTE | 2020-09-13 07:30 | Anesthesiology Consultation ---
Date of Service September 13, 2020 Assessment & Plan (1) Encounter for pre-operative examination: Chart Review Chart Review: Acceptable Risk for Surgery History Surgery Operation Date: 09/13/20 09:00 Proposed Procedures p Intramedullary Cassius Femur(Left) - Mika Tatum MD Height/Weight Height: 5 ft 8 in Weight: 69.5 kg Allergies Allergy/AdvReac Type Severity Reaction Status Date / Time No Known Allergies Allergy Verified 09/12/20 18:17 Medications Home Medications Medication Instructions Recorded Confirmed Last Taken ergocalciferol (vitamin D2) 1,250 50,000 units PO .COMPLEX #12 cap 11/19/19 09/12/20 Unknown mcg (50,000 unit) capsule hydrochlorothiazide 25 mg tablet 25 mg PO DAILY #30 tab 04/23/20 09/12/20 09/12/20 08:00 alendronate 70 mg tablet 70 mg PO WK 04/28/20 09/12/20 Unknown amlodipine 10 mg tablet 10 mg PO DAILY #90 tab 05/25/20 09/12/20 09/12/20 08:00 Active Medications Generic Name Dose Route Start Last Admin Trade Name Delq PRN Reason Stop Dose Admin Amlodipine Besylate 10 mg 09/13/20 09:00 09/13/20 09:56 Amlodipine Besylate 5 Mg Tab PO 10/13/20 08:59 10 mg DAILY MARIBETH Administration Potassium Chloride 20 meq/ 1,010 mls @ 75 mls/hr 09/13/20 08:15 09/13/20 09:57 Lactated Ringer's IV 10/12/20 08:14 75 mls/hr .[id number] MARIBETH Administration Senna/Docusate Sodium 2 tab 09/12/20 21:00 09/12/20 22:25 Docusate Sodium/Senna 50/8.6mg Tab PO 10/12/20 20:59 2 tab HS MARIBETH Administration NPO Date Last Intake of Fluids: 09/12/20 Time Last Intake of Fluids: 23:59 Date Last Intake of Solids: 09/12/20 Time Last Intake of Solids: 23:59 Past Medical History Medical History Hyperlipidemia Hypertension Osteopenia Vitamin D deficiency Past Family History Family History Aunt Breast cancer Uncle Myocardial infarction Mother Diabetes uncertain for sure but believe COPD (chronic obstructive pulmonary disease) Father Cancer Pancreatic Sister Vitamin D deficiency Denies family history of Ovarian cancer Prostate cancer Lung cancer Colorectal cancer Stroke Past Surgical History Surgical History History of appendectomy History of colonoscopy No pertinent past surgical history Social History Smoking Status: Never smoker Hx Alcohol Use: No Hx Substance Use: No Physical Exam Vital Signs Last Vital Signs Temp 37.5 C 09/13/20 14:00 Pulse 68 09/13/20 14:00 Resp 18 09/13/20 08:01 BP 162/84 H 09/13/20 14:00 Pulse Ox 93 09/13/20 14:00 Testing Laboratory Results 09/13/20 05:35 09/13/20 05:35 PT 10.3 Seconds (9.0-12.0) 09/12/20 15:59 INR 1.0 (0.9-1.1) 09/12/20 15:59 APTT 23.1 Seconds (21.0-31.0) 09/12/20 15:59 Urine Color Yellow 09/12/20 16:15 Urine Appearance Clear (Clear) 09/12/20 16:15 Urine pH 8.5 (4.5-7.5) H 09/12/20 16:15 Ur Specific [place] 1.011 (1.000-1.030) 09/12/20 16:15 Urine Protein Negative (Negative) 09/12/20 16:15 Urine Glucose (UA) Negative (Negative) 09/12/20 16:15 Urine Ketones Negative (Negative) 09/12/20 16:15 Urine Nitrite Negative (Negative) 09/12/20 16:15 Ur Leukocyte Esterase Negative (Negative) 09/12/20 16:15 Blood Type A Positive 09/12/20 16:18 Antibody Screen NEGATIVE 09/12/20 16:18 Electrocardiogram Date: 09/13/20 Findings: + NSR @ (72), + NSST changes, + RBBB (incomplete) and + no change from (prior) Echocardiogram Date: 09/13/20 EF: 65-70 LV Function: normal Valvular Disease: + no significant valvular disease
--- NOTE | 2020-09-13 07:54 | Orthopedic Progress Note ---
Date of Service September 13, 2020 Assessment & Plan (1) Fracture of left hip: The patient is a 70 year old female who sustained a left hip fracture from a ground level fall. The patients treatment options of conservative versus surgical intervention were discussed. Since the patient was an ambulatory prior to the injury and to avoid the risks of bed sores, pulmonary complications, and to give the best chance for ambulation, I recommended surgery. The patient understands the risks of surgery, which include but are not limited to: bleeding, infection, re-operation, damage to nerves and arteries, continued pain, failure of the hardware, mal-union, non-union, DVT, and . In additi on the patient is aware of the 20-30% morbidity associated with hip fracture for up to 1 year following a hip fracture. The patient has elected to proceed with surgery and the informed consent was si gned yesterday. The left thigh was initialled. The patient understands all of these instructions and explanations, all of their questions have been satisfactorily addressed. Placed on the add-on schedule for today. Will proceed with surgery as medically stable. Patient has been NPO after midnight. The patient is currently NWB. TEDs and foot pumps to LLE. Antibiotics nurses' association executive director to OR. Admission and Anticipated Discharge Date Admission Date: September 12, 2020 Subjective Ready for surgery Review of Systems Review of Systems: All systems reviewed & are unremarkable except as noted in HPI & below Physical Exam Physical Exam: LLE: Shortened and externally rotated. Sensation to light touch is intact. 2+ DP pulse. Wiggling toes and ankle. Calf is soft and non-tender. + Tender to palpation left hip. Results & Data ([facility]) Vital Signs (Past 12 Hours) Vital Signs Temp Pulse Resp BP Pulse Ox 09/13/20 06:30 37.0 C 74 14 143/80 H 93 09/12/20 23:33 37.5 C 71 14 145/77 H 96 09/12/20 20:00 37.2 C 86 14 155/75 H 95 Laboratory Results 09/13/20 09/13/20 09/12/20 Range/Units 05:35 05:35 17:20 WBC 8.42 (4.8-10.8) K/uL RBC 4.28 (4.2-5.4) M/uL Hgb 13.1 (12.0-16.0) g/dL Hct 38.0 (37-47) % MCV 88.8 (80-100) fL MCH 30.6 (25-34) pg MCHC 34.5 (32-36) g/dL RDW Std Deviation 43.5 (36.4-46.3) fL RDW Coeff of Scar 13.3 (11.5-14.5) % Plt Count 262 (130-400) K/uL MPV 10.0 (7.4-10.4) fL Immature Gran % (Auto) 0.2 % Neut % (Auto) 81.0 % Lymph % (Auto) 9.6 % [place] % (Auto) 8.8 % Eos % (Auto) 0.2 % Baso % (Auto) 0.2 % Neut # (Auto) 6.81 H (1.4-6.5) K/uL Lymph # (Auto) 0.81 L (1.2-3.4) K/uL [place] # (Auto) 0.74 H (0.11-0.59) K/uL Eos # (Auto) 0.02 (0-0.5) K/uL Baso # (Auto) 0.02 (0-0.2) K/uL Immature Gran # (Auto) 0.02 (0.00-0.02) K/uL PT (9.0-12.0) Seconds INR (0.9-1.1) APTT (21.0-31.0) Seconds PTT Ratio Sodium 134 L (136-145) mmol/L Potassium 3.4 L (3.5-5.1) mmol/L Chloride 100 (98-107) mmol/L Carbon Dioxide 27 (21-32) mmol/L Anion Gap 7.0 (3-11) BUN 13 (7-18) mg/dl Creatinine 0.68 (0.6-1.2) mg/dl Est Cr Clr Drug Dosing 77.7 ml/min Est GFR ( Amer) 102.7 Est GFR (Non-Af Amer) 88.6 BUN/Creatinine Ratio 19.0 (10-20) Glucose 113 H (70-99) mg/dl Calcium 8.5 (8.5-10.1) mg/dl Magnesium 2.1 (1.8-2.4) mg/dl Total Bilirubin (0.2-1) mg/dl AST (15-37) U/L ALT (12-78) U/L Alkaline Phosphatase (45-117) U/L Total Protein (6.4-8.2) gm/dl Albumin (3.4-5.0) gm/dl Globulin (2.5-4.0) gm/dl Albumin/Globulin Ratio (0.9-2) Triglycerides 46 (0-150) mg/dl Cholesterol 195 (0-200) mg/dl LDL Cholesterol, Calc 110 mg/dl VLDL Cholesterol, Calc 9 mg/dl HDL Cholesterol 76 mg/dl Cholesterol/HDL Ratio 3 Urine Color Urine Appearance (Clear) Urine pH (4.5-7.5) Ur Specific [place] (1.000-1.030) Urine Protein (Negative) Urine Glucose (UA) (Negative) Urine Ketones (Negative) Urine Blood (Negative) Urine Nitrite (Negative) Urine Bilirubin (Negative) Urine Urobilinogen (Negative) Ur Leukocyte Esterase (Negative) COVID-19 Eval Order SARS-CoV-2 (PCR) NEGATIVE (Negative) Hepatitis C Ab Screen (Neg) Influenza Type A (PCR) Negative (Neg) Influenza Type B (PCR) Negative (Neg) RSV (RT-PCR) Negative (Neg) Blood Type Antibody Screen 09/12/20 09/12/20 09/12/20 Range/Units 17:20 16:18 16:15 WBC (4.8-10.8) K/uL RBC (4.2-5.4) M/uL Hgb (12.0-16.0) g/dL Hct (37-47) % MCV (80-100) fL MCH (25-34) pg MCHC (32-36) g/dL RDW Std Deviation (36.4-46.3) fL RDW Coeff of Scar (11.5-14.5) % Plt Count (130-400) K/uL MPV (7.4-10.4) fL Immature Gran % (Auto) % Neut % (Auto) % Lymph % (Auto) % [place] % (Auto) % Eos % (Auto) % Baso % (Auto) % Neut # (Auto) (1.4-6.5) K/uL Lymph # (Auto) (1.2-3.4) K/uL [place] # (Auto) (0.11-0.59) K/uL Eos # (Auto) (0-0.5) K/uL Baso # (Auto) (0-0.2) K/uL Immature Gran # (Auto) (0.00-0.02) K/uL PT (9.0-12.0) Seconds INR (0.9-1.1) APTT (21.0-31.0) Seconds PTT Ratio Sodium (136-145) mmol/L Potassium (3.5-5.1) mmol/L Chloride (98-107) mmol/L Carbon Dioxide (21-32) mmol/L Anion Gap (3-11) BUN (7-18) mg/dl Creatinine (0.6-1.2) mg/dl Est Cr Clr Drug Dosing ml/min Est GFR ( Amer) Est GFR (Non-Af Amer) BUN/Creatinine Ratio (10-20) Glucose (70-99) mg/dl Calcium (8.5-10.1) mg/dl Magnesium (1.8-2.4) mg/dl Total Bilirubin (0.2-1) mg/dl AST (15-37) U/L ALT (12-78) U/L Alkaline Phosphatase (45-117) U/L Total Protein (6.4-8.2) gm/dl Albumin (3.4-5.0) gm/dl Globulin (2.5-4.0) gm/dl Albumin/Globulin Ratio (0.9-2) Triglycerides (0-150) mg/dl Cholesterol (0-200) mg/dl LDL Cholesterol, Calc mg/dl VLDL Cholesterol, Calc mg/dl HDL Cholesterol mg/dl Cholesterol/HDL Ratio Urine Color Yellow Urine Appearance Clear (Clear) Urine pH 8.5 H (4.5-7.5) Ur Specific [place] 1.011 (1.000-1.030) Urine Protein Negative (Negative) Urine Glucose (UA) Negative (Negative) Urine Ketones Negative (Negative) Urine Blood Negative (Negative) Urine Nitrite Negative (Negative) Urine Bilirubin Negative (Negative) Urine Urobilinogen Negative (Negative) Ur Leukocyte Esterase Negative (Negative) COVID-19 Eval Order CovFluRsv at [facility] SARS-CoV-2 (PCR) (Negative) Hepatitis C Ab Screen (Neg) Influenza Type A (PCR) (Neg) Influenza Type B (PCR) (Neg) RSV (RT-PCR) (Neg) Blood Type A Positive Antibody Screen NEGATIVE 09/12/20 09/12/20 09/12/20 Range/Units 16:15 15:59 15:59 WBC 7.99 (4.8-10.8) K/uL RBC 4.40 (4.2-5.4) M/uL Hgb 13.5 (12.0-16.0) g/dL Hct 39.3 (37-47) % MCV 89.3 (80-100) fL MCH 30.7 (25-34) pg MCHC 34.4 (32-36) g/dL RDW Std Deviation 43.8 (36.4-46.3) fL RDW Coeff of Scar 13.3 (11.5-14.5) % Plt Count 287 (130-400) K/uL MPV 10.3 (7.4-10.4) fL Immature Gran % (Auto) 0.3 % Neut % (Auto) 84.2 % Lymph % (Auto) 10.0 % [place] % (Auto) 4.9 % Eos % (Auto) 0.3 % Baso % (Auto) 0.3 % Neut # (Auto) 6.74 H (1.4-6.5) K/uL Lymph # (Auto) 0.80 L (1.2-3.4) K/uL [place] # (Auto) 0.39 (0.11-0.59) K/uL Eos # (Auto) 0.02 (0-0.5) K/uL Baso # (Auto) 0.02 (0-0.2) K/uL Immature Gran # (Auto) 0.02 (0.00-0.02) K/uL PT (9.0-12.0) Seconds INR (0.9-1.1) APTT (21.0-31.0) Seconds PTT Ratio Sodium 136 (136-145) mmol/L Potassium 3.6 (3.5-5.1) mmol/L Chloride 101 (98-107) mmol/L Carbon Dioxide 30 (21-32) mmol/L Anion Gap 5.0 (3-11) BUN 20 H (7-18) mg/dl Creatinine 0.83 (0.6-1.2) mg/dl Est Cr Clr Drug Dosing 63.6 ml/min Est GFR ( Amer) 82.8 Est GFR (Non-Af Amer) 71.4 BUN/Creatinine Ratio 24.2 H (10-20) Glucose 108 H (70-99) mg/dl Calcium 8.6 (8.5-10.1) mg/dl Magnesium (1.8-2.4) mg/dl Total Bilirubin 0.5 (0.2-1) mg/dl AST 26 (15-37) U/L ALT 27 (12-78) U/L Alkaline Phosphatase 58 (45-117) U/L Total Protein 8.8 H (6.4-8.2) gm/dl Albumin 4.2 (3.4-5.0) gm/dl Globulin 4.6 H (2.5-4.0) gm/dl Albumin/Globulin Ratio 0.9 (0.9-2) Triglycerides (0-150) mg/dl Cholesterol (0-200) mg/dl LDL Cholesterol, Calc mg/dl VLDL Cholesterol, Calc mg/dl HDL Cholesterol mg/dl Cholesterol/HDL Ratio Urine Color Urine Appearance (Clear) Urine pH (4.5-7.5) Ur Specific [place] (1.000-1.030) Urine Protein (Negative) Urine Glucose (UA) (Negative) Urine Ketones (Negative) Urine Blood (Negative) Urine Nitrite (Negative) Urine Bilirubin (Negative) Urine Urobilinogen (Negative) Ur Leukocyte Esterase (Negative) COVID-19 Eval Order SARS-CoV-2 (PCR) (Negative) Hepatitis C Ab Screen Neg (Neg) Influenza Type A (PCR) (Neg) Influenza Type B (PCR) (Neg) RSV (RT-PCR) (Neg) Blood Type Antibody Screen 09/12/20 Range/Units 15:59 WBC (4.8-10.8) K/uL RBC (4.2-5.4) M/uL Hgb (12.0-16.0) g/dL Hct (37-47) % MCV (80-100) fL MCH (25-34) pg MCHC (32-36) g/dL RDW Std Deviation (36.4-46.3) fL RDW Coeff of Scar (11.5-14.5) % Plt Count (130-400) K/uL MPV (7.4-10.4) fL Immature Gran % (Auto) % Neut % (Auto) % Lymph % (Auto) % [place] % (Auto) % Eos % (Auto) % Baso % (Auto) % Neut # (Auto) (1.4-6.5) K/uL Lymph # (Auto) (1.2-3.4) K/uL [place] # (Auto) (0.11-0.59) K/uL Eos # (Auto) (0-0.5) K/uL Baso # (Auto) (0-0.2) K/uL Immature Gran # (Auto) (0.00-0.02) K/uL PT 10.3 (9.0-12.0) Seconds INR 1.0 (0.9-1.1) APTT 23.1 (21.0-31.0) Seconds PTT Ratio 0.9 Sodium (136-145) mmol/L Potassium (3.5-5.1) mmol/L Chloride (98-107) mmol/L Carbon Dioxide (21-32) mmol/L Anion Gap (3-11) BUN (7-18) mg/dl Creatinine (0.6-1.2) mg/dl Est Cr Clr Drug Dosing ml/min Est GFR ( Amer) Est GFR (Non-Af Amer) BUN/Creatinine Ratio (10-20) Glucose (70-99) mg/dl Calcium (8.5-10.1) mg/dl Magnesium (1.8-2.4) mg/dl Total Bilirubin (0.2-1) mg/dl AST (15-37) U/L ALT (12-78) U/L Alkaline Phosphatase (45-117) U/L Total Protein (6.4-8.2) gm/dl Albumin (3.4-5.0) gm/dl Globulin (2.5-4.0) gm/dl Albumin/Globulin Ratio (0.9-2) Triglycerides (0-150) mg/dl Cholesterol (0-200) mg/dl LDL Cholesterol, Calc mg/dl VLDL Cholesterol, Calc mg/dl HDL Cholesterol mg/dl Cholesterol/HDL Ratio Urine Color Urine Appearance (Clear) Urine pH (4.5-7.5) Ur Specific [place] (1.000-1.030) Urine Protein (Negative) Urine Glucose (UA) (Negative) Urine Ketones (Negative) Urine Blood (Negative) Urine Nitrite (Negative) Urine Bilirubin (Negative) Urine Urobilinogen (Negative) Ur Leukocyte Esterase (Negative) COVID-19 Eval Order SARS-CoV-2 (PCR) (Negative) Hepatitis C Ab Screen (Neg) Influenza Type A (PCR) (Neg) Influenza Type B (PCR) (Neg) RSV (RT-PCR) (Neg) Blood Type Antibody Screen (1) Fracture of left hip Encounter type: initial encounter Fracture type: closed Qualified Code(s): S72.002A - Fracture of unspecified part of neck of left femur, initial encounter for closed fracture
--- NOTE | 2020-09-13 08:01 | Hospitalist Progress Note ---
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 Hx Osteoporosis and VIt D deficiency on oral and injections Q3M. Orthopedics consulted -- Dr. Tatum NPO currently for intervention today Pain control with tylenol, morphine, norco prn Has Alvares in place SCDs, TEDs for now -- chemical chemoprop to be ordered following surgery CXR without acute findings. UA without infection. EKG not yet done this morning in system -- ordered to complete if not already done --> EKG completed this morning that did show evidence of inferior and lateral ischemia and troponin was ordered which came back at 0.047 and discussed with attending and Dr. Jerome and will plan on stat echocardiogram as well as repeat troponin with EKG in 4 hours for comparison. No old EKG for comparison Patient does not endorse any chest pain or shortness of breath and is very active at home but did have a an echocardiogram in May 2019 for history of hypertension that did not show any significant valvular abnormalities. Stat echocardiogram Transfer to telemetry --> If echocardiogram looks okay and troponin trending down anticipate the patient would be able to proceed this afternoon/evening for hip repair given her reasonable functional capacity however she would be at an increased risk for complications (2) Hypertension: Chronic. Typically controlled but some elevations due to pain Typically on HCTZ 25mg and amlodipine 10mg daily --> Hydrochlorothiazide held this morning but continued amlodipine 10mg (increased in past year from 7.5mg to 10mg daily) . --> Given dose of low-dose metoprolol given her right bundle branch block on EKG Also ordered aspirin 81 mg daily which we will continue at discharge pathology given her significant hypertensive history tinue to monitor (3) Hyperlipidemia: History of but diet controlled, not on medications Lipid panel acceptable -- triglycerides 46, cholesterol 195, LDL 110, HDL 76 Aspirin as above (4) Vitamin D deficiency: Patient Vitamin D2 every other week (5) Osteoporosis: on Fosamax- Ortho hold for 3 months DVT Prophylaxis -- SCDs transfer, Gage hose --Chemical proph following surgery Dispo: Moving to telemetry for closer monitoring, echocardiogram, repeat trop onin and EKG If acceptable to proceed to OR today for intramedullary keturah with Dr. Tatum Admission and Anticipated Discharge Date Admission Date: September 12, 2020 Supervising Physician Co-Signing Physician Notes JANES Supervision Note: I did not personally see or examine the patient today, but I verified all curtis points of JANES Betancourt's assessment and plan with the following exceptions/additions: None Subjective Patient evaluated this morning.. She is resting comfortably on bed at this time and states she does not have any pain is now she is staying still in the ordered medications have been effective in controlling her pain but she has not required since yesterday in the emergency department. Past medical history significant for hypertension hyperlipidemia she is on amlodipine and hydrochlorothiazide daily for. EKG was not performed preoperatively and asked nursing to obtain this morning discussed with patient that there were some concerns for inferolateral changes as discussed with Dr. Jerome and that we were obtaining a troponin to ensure no damage to the heart. Given the changes on EKG if surgery is required emergently she would be able to proceed at high risk but at that time we were still waiting a troponin level which was not drawn admission. She states she is typically very active and does not endorse any shortness of breath or chest pain with exertion. She used to exercise at [employer] however more recently has been doing video Zoom sessions with the [facility] to stay active. She does note that she did have an echocardiogram done by her primary care provider last May for history of hypertension and that was normal at that time. She has not ever been on aspirin denies any history of bleeding or reasons why she is not on this preventative medication. She has never had an CA. She notes that she has only been in the hospital twice after major birthdays 1 was 30 years ago after her 40th birthday which she required hospitalization for approximately 16 days for appendicitis with abscess and the only other time was for childbirth. Discussed move her to telemetry for closer monitoring and obtain an echocardiogram prior to surgery and repeat a troponin level given that was elevated to 0.047 this morning. This was discussed with primary service and called to the OR to let them know we were awaiting echo prior to clearance for surgery. Review of Systems Review of Systems: All systems reviewed & are unremarkable except as noted in HPI & below Physical Exam Physical Exam: PHYSICAL EXAM: General: awake, alert, no apparent distress, comfortable laying in bed Head: Normocephalic, atraumatic ENT: PERRL, EOMI, no pharyngeal exudate, mucous membranes moist Neuro: AAO x 3, speech clear and appropriate, strength intact bilaterally 5/5, sensation intact and equal all extremities and dermatomes, no pronator drift Chest: equal rise and fall of the chest, no accessory muscle use, no heaves or thrills, Clear to auscultation, on room air, Cardiac: Regular rate and rhythm, no murmur rub or gallop. kkin warm dry, cap refill <3 seconds, peripheral pulses +2, no JVD, no edema GI: NABS x 4 quadrants, soft, nontender to palpation, no rebound, guarding or tenderness : alvares catheter placed draining light yellow urine, no pain, no CVA tenderness, Extremities: no peripheral edema or erythema, calfs nontender to palpation. Her left lower extremity is shortened and externally rotated. Neurovascularly intact with pulses palpable bilaterally to the dorsalis pedis and posterior tibial artery Psych: Normal mood and affect Skin: no rash or erythema Results & Data Results & Data ([facility]) Vital Signs (Past 12 Hours) Vital Signs Temp Pulse Resp BP Pulse Ox 09/13/20 06:30 37.0 C 74 14 143/80 H 93 09/12/20 23:33 37.5 C 71 14 145/77 H 96 Laboratory Results 09/13/20 09/13/20 09/12/20 Range/Units 05:35 05:35 17:20 WBC 8.42 (4.8-10.8) K/uL RBC 4.28 (4.2-5.4) M/uL Hgb 13.1 (12.0-16.0) g/dL Hct 38.0 (37-47) % MCV 88.8 (80-100) fL MCH 30.6 (25-34) pg MCHC 34.5 (32-36) g/dL RDW Std Deviation 43.5 (36.4-46.3) fL RDW Coeff of Scar 13.3 (11.5-14.5) % Plt Count 262 (130-400) K/uL MPV 10.0 (7.4-10.4) fL Immature Gran % (Auto) 0.2 % Neut % (Auto) 81.0 % Lymph % (Auto) 9.6 % [place] % (Auto) 8.8 % Eos % (Auto) 0.2 % Baso % (Auto) 0.2 % Neut # (Auto) 6.81 H (1.4-6.5) K/uL Lymph # (Auto) 0.81 L (1.2-3.4) K/uL [place] # (Auto) 0.74 H (0.11-0.59) K/uL Eos # (Auto) 0.02 (0-0.5) K/uL Baso # (Auto) 0.02 (0-0.2) K/uL Immature Gran # (Auto) 0.02 (0.00-0.02) K/uL PT (9.0-12.0) Seconds INR (0.9-1.1) APTT (21.0-31.0) Seconds PTT Ratio Sodium 134 L (136-145) mmol/L Potassium 3.4 L (3.5-5.1) mmol/L Chloride 100 (98-107) mmol/L Carbon Dioxide 27 (21-32) mmol/L Anion Gap 7.0 (3-11) BUN 13 (7-18) mg/dl Creatinine 0.68 (0.6-1.2) mg/dl Est Cr Clr Drug Dosing 77.7 ml/min Est GFR ( Amer) 102.7 Est GFR (Non-Af Amer) 88.6 BUN/Creatinine Ratio 19.0 (10-20) Glucose 113 H (70-99) mg/dl Calcium 8.5 (8.5-10.1) mg/dl Magnesium 2.1 (1.8-2.4) mg/dl Total Bilirubin (0.2-1) mg/dl AST (15-37) U/L ALT (12-78) U/L Alkaline Phosphatase (45-117) U/L Total Protein (6.4-8.2) gm/dl Albumin (3.4-5.0) gm/dl Globulin (2.5-4.0) gm/dl Albumin/Globulin Ratio (0.9-2) Triglycerides 46 (0-150) mg/dl Cholesterol 195 (0-200) mg/dl LDL Cholesterol, Calc 110 mg/dl VLDL Cholesterol, Calc 9 mg/dl HDL Cholesterol 76 mg/dl Cholesterol/HDL Ratio 3 Urine Color Urine Appearance (Clear) Urine pH (4.5-7.5) Ur Specific [place] (1.000-1.030) Urine Protein (Negative) Urine Glucose (UA) (Negative) Urine Ketones (Negative) Urine Blood (Negative) Urine Nitrite (Negative) Urine Bilirubin (Negative) Urine Urobilinogen (Negative) Ur Leukocyte Esterase (Negative) COVID-19 Eval Order SARS-CoV-2 (PCR) NEGATIVE (Negative) Hepatitis C Ab Screen (Neg) Influenza Type A (PCR) Negative (Neg) Influenza Type B (PCR) Negative (Neg) RSV (RT-PCR) Negative (Neg) Blood Type Antibody Screen 09/12/20 09/12/20 09/12/20 Range/Units 17:20 16:18 16:15 WBC (4.8-10.8) K/uL RBC (4.2-5.4) M/uL Hgb (12.0-16.0) g/dL Hct (37-47) % MCV (80-100) fL MCH (25-34) pg MCHC (32-36) g/dL RDW Std Deviation (36.4-46.3) fL RDW Coeff of Scar (11.5-14.5) % Plt Count (130-400) K/uL MPV (7.4-10.4) fL Immature Gran % (Auto) % Neut % (Auto) % Lymph % (Auto) % [place] % (Auto) % Eos % (Auto) % Baso % (Auto) % Neut # (Auto) (1.4-6.5) K/uL Lymph # (Auto) (1.2-3.4) K/uL [place] # (Auto) (0.11-0.59) K/uL Eos # (Auto) (0-0.5) K/uL Baso # (Auto) (0-0.2) K/uL Immature Gran # (Auto) (0.00-0.02) K/uL PT (9.0-12.0) Seconds INR (0.9-1.1) APTT (21.0-31.0) Seconds PTT Ratio Sodium (136-145) mmol/L Potassium (3.5-5.1) mmol/L Chloride (98-107) mmol/L Carbon Dioxide (21-32) mmol/L Anion Gap (3-11) BUN (7-18) mg/dl Creatinine (0.6-1.2) mg/dl Est Cr Clr Drug Dosing ml/min Est GFR ( Amer) Est GFR (Non-Af Amer) BUN/Creatinine Ratio (10-20) Glucose (70-99) mg/dl Calcium (8.5-10.1) mg/dl Magnesium (1.8-2.4) mg/dl Total Bilirubin (0.2-1) mg/dl AST (15-37) U/L ALT (12-78) U/L Alkaline Phosphatase (45-117) U/L Total Protein (6.4-8.2) gm/dl Albumin (3.4-5.0) gm/dl Globulin (2.5-4.0) gm/dl Albumin/Globulin Ratio (0.9-2) Triglycerides (0-150) mg/dl Cholesterol (0-200) mg/dl LDL Cholesterol, Calc mg/dl VLDL Cholesterol, Calc mg/dl HDL Cholesterol mg/dl Cholesterol/HDL Ratio Urine Color Yellow Urine Appearance Clear (Clear) Urine pH 8.5 H (4.5-7.5) Ur Specific [place] 1.011 (1.000-1.030) Urine Protein Negative (Negative) Urine Glucose (UA) Negative (Negative) Urine Ketones Negative (Negative) Urine Blood Negative (Negative) Urine Nitrite Negative (Negative) Urine Bilirubin Negative (Negative) Urine Urobilinogen Negative (Negative) Ur Leukocyte Esterase Negative (Negative) COVID-19 Eval Order CovFluRsv at [facility] SARS-CoV-2 (PCR) (Negative) Hepatitis C Ab Screen (Neg) Influenza Type A (PCR) (Neg) Influenza Type B (PCR) (Neg) RSV (RT-PCR) (Neg) Blood Type A Positive Antibody Screen NEGATIVE 09/12/20 09/12/20 09/12/20 Range/Units 16:15 15:59 15:59 WBC 7.99 (4.8-10.8) K/uL RBC 4.40 (4.2-5.4) M/uL Hgb 13.5 (12.0-16.0) g/dL Hct 39.3 (37-47) % MCV 89.3 (80-100) fL MCH 30.7 (25-34) pg MCHC 34.4 (32-36) g/dL RDW Std Deviation 43.8 (36.4-46.3) fL RDW Coeff of Scar 13.3 (11.5-14.5) % Plt Count 287 (130-400) K/uL MPV 10.3 (7.4-10.4) fL Immature Gran % (Auto) 0.3 % Neut % (Auto) 84.2 % Lymph % (Auto) 10.0 % [place] % (Auto) 4.9 % Eos % (Auto) 0.3 % Baso % (Auto) 0.3 % Neut # (Auto) 6.74 H (1.4-6.5) K/uL Lymph # (Auto) 0.80 L (1.2-3.4) K/uL [place] # (Auto) 0.39 (0.11-0.59) K/uL Eos # (Auto) 0.02 (0-0.5) K/uL Baso # (Auto) 0.02 (0-0.2) K/uL Immature Gran # (Auto) 0.02 (0.00-0.02) K/uL PT (9.0-12.0) Seconds INR (0.9-1.1) APTT (21.0-31.0) Seconds PTT Ratio Sodium 136 (136-145) mmol/L Potassium 3.6 (3.5-5.1) mmol/L Chloride 101 (98-107) mmol/L Carbon Dioxide 30 (21-32) mmol/L Anion Gap 5.0 (3-11) BUN 20 H (7-18) mg/dl Creatinine 0.83 (0.6-1.2) mg/dl Est Cr Clr Drug Dosing 63.6 ml/min Est GFR ( Amer) 82.8 Est GFR (Non-Af Amer) 71.4 BUN/Creatinine Ratio 24.2 H (10-20) Glucose 108 H (70-99) mg/dl Calcium 8.6 (8.5-10.1) mg/dl Magnesium (1.8-2.4) mg/dl Total Bilirubin 0.5 (0.2-1) mg/dl AST 26 (15-37) U/L ALT 27 (12-78) U/L Alkaline Phosphatase 58 (45-117) U/L Total Protein 8.8 H (6.4-8.2) gm/dl Albumin 4.2 (3.4-5.0) gm/dl Globulin 4.6 H (2.5-4.0) gm/dl Albumin/Globulin Ratio 0.9 (0.9-2) Triglycerides (0-150) mg/dl Cholesterol (0-200) mg/dl LDL Cholesterol, Calc mg/dl VLDL Cholesterol, Calc mg/dl HDL Cholesterol mg/dl Cholesterol/HDL Ratio Urine Color Urine Appearance (Clear) Urine pH (4.5-7.5) Ur Specific [place] (1.000-1.030) Urine Protein (Negative) Urine Glucose (UA) (Negative) Urine Ketones (Negative) Urine Blood (Negative) Urine Nitrite (Negative) Urine Bilirubin (Negative) Urine Urobilinogen (Negative) Ur Leukocyte Esterase (Negative) COVID-19 Eval Order SARS-CoV-2 (PCR) (Negative) Hepatitis C Ab Screen Neg (Neg) Influenza Type A (PCR) (Neg) Influenza Type B (PCR) (Neg) RSV (RT-PCR) (Neg) Blood Type Antibody Screen 09/12/20 Range/Units 15:59 WBC (4.8-10.8) K/uL RBC (4.2-5.4) M/uL Hgb (12.0-16.0) g/dL Hct (37-47) % MCV (80-100) fL MCH (25-34) pg MCHC (32-36) g/dL RDW Std Deviation (36.4-46.3) fL RDW Coeff of Scar (11.5-14.5) % Plt Count (130-400) K/uL MPV (7.4-10.4) fL Immature Gran % (Auto) % Neut % (Auto) % Lymph % (Auto) % [place] % (Auto) % Eos % (Auto) % Baso % (Auto) % Neut # (Auto) (1.4-6.5) K/uL Lymph # (Auto) (1.2-3.4) K/uL [place] # (Auto) (0.11-0.59) K/uL Eos # (Auto) (0-0.5) K/uL Baso # (Auto) (0-0.2) K/uL Immature Gran # (Auto) (0.00-0.02) K/uL PT 10.3 (9.0-12.0) Seconds INR 1.0 (0.9-1.1) APTT 23.1 (21.0-31.0) Seconds PTT Ratio 0.9 Sodium (136-145) mmol/L Potassium (3.5-5.1) mmol/L Chloride (98-107) mmol/L Carbon Dioxide (21-32) mmol/L Anion Gap (3-11) BUN (7-18) mg/dl Creatinine (0.6-1.2) mg/dl Est Cr Clr Drug Dosing ml/min Est GFR ( Amer) Est GFR (Non-Af Amer) BUN/Creatinine Ratio (10-20) Glucose (70-99) mg/dl Calcium (8.5-10.1) mg/dl Magnesium (1.8-2.4) mg/dl Total Bilirubin (0.2-1) mg/dl AST (15-37) U/L ALT (12-78) U/L Alkaline Phosphatase (45-117) U/L Total Protein (6.4-8.2) gm/dl Albumin (3.4-5.0) gm/dl Globulin (2.5-4.0) gm/dl Albumin/Globulin Ratio (0.9-2) Triglycerides (0-150) mg/dl Cholesterol (0-200) mg/dl LDL Cholesterol, Calc mg/dl VLDL Cholesterol, Calc mg/dl HDL Cholesterol mg/dl Cholesterol/HDL Ratio Urine Color Urine Appearance (Clear) Urine pH (4.5-7.5) Ur Specific [place] (1.000-1.030) Urine Protein (Negative) Urine Glucose (UA) (Negative) Urine Ketones (Negative) Urine Blood (Negative) Urine Nitrite (Negative) Urine Bilirubin (Negative) Urine Urobilinogen (Negative) Ur Leukocyte Esterase (Negative) COVID-19 Eval Order SARS-CoV-2 (PCR) (Negative) Hepatitis C Ab Screen (Neg) Influenza Type A (PCR) (Neg) Influenza Type B (PCR) (Neg) RSV (RT-PCR) (Neg) Blood Type Antibody Screen Diagnostic Findings Chest X-Ray 09/12/20 15:36 SINGLE VIEW CHEST CLINICAL HISTORY: Fall. Hip fracture. Preoperative examination. FINDINGS: An AP, portable, semierect chest radiograph is obtained. No prior studies are available for comparison at the time of dictation. The cardiomediastinal silhouette is top normal for projection. There is mild bibasilar scarring/atelectasis. No airspace consolidation or large pleural effusion is identified. No pneumothorax is seen. The skeletal structures are osteopenic. The bony thorax is grossly intact. IMPRESSION: No acute cardiopulmonary abnormality. ACT 112: Negative or not required by law. Electronically signed by: Reed Turner M.D. 09/12/2020 4:56 PM Hip/Pelvis X-Ray 09/12/20 15:36 SINGLE VIEW PELVIS; 2 VIEWS LEFT HIP CLINICAL HISTORY: Fall with left hip injury. FINDINGS: An AP view of the pelvis with AP and crosstable lateral views of the left hip are obtained. No prior studies are available for comparison at the time of dictation. The skeletal structures are osteopenic. No fracture is seen involving the right hip or the bony pelvis. There is a minimally displaced intertrochanteric fracture of the left proximal femur with overlying soft tissue edema. Mild to moderate degenerative joint space narrowing is seen in both hips. Degenerative sclerosis is noted in the sacroiliac joints and pubic symphysis. A Alvares catheter is in place. A phlebolith is noted in the right hemipelvis. Moderate fecal retention is seen throughout the imaged colon. IMPRESSION: Intertrochanteric fracture of the left femur as above. Electronically signed by: Reed Turner M.D. 09/12/2020 4:54 PM ECG Indication: other (pre-op hx HTN) Additional Comments: EKG this morning with normal sinus rhythm, possible left atrial enlargement with incomplete right bundle branch block. Also shows some S T-T wave abnormalities in V5 V6 consistent with inferior lateral ischemia. No old EKGs for comparison PG Care Time/CCT Total # of Minutes Spent Total Time Spent with Patient: Total time spent is greater than 50% in coordination of care (as documented) at patient's floor/unit and/or counseling patient: Coding Level of Care Code 93235 Subseq Hosp Care Lvl 3 Diagnoses Fracture of left hip S72.002A Encounter type: initial encounter Fracture type: closed Hypertension I10 Hypertension type: essential hypertension Hyperlipidemia E78.5 Hyperlipidemia type: unspecified Vitamin D deficiency E55.9 Osteoporosis M81.0 Osteoporosis type: unspecified Presence of current pathological fracture: without current pathological fracture (1) Osteoporosis Osteoporosis type: unspecified Presence of current pathological fracture: without current pathological fracture Qualified Code(s): M81.0 - Age-related osteoporosis without current pathological fracture (2) Hyperlipidemia Hyperlipidemia type: unspecified Qualified Code(s): E78.5 - Hyperlipidemia, unspecified (3) Fracture of left hip Encounter type: initial encounter Fracture type: closed Qualified Code(s): S72.002A - Fracture of unspecified part of neck of left femur, initial encounter for closed fracture (4) Hypertension Hypertension type: essential hypertension Qualified Code(s): I10 - Essential (primary) hypertension
[2020-09-13] MEDS ORDERED: ceFAZolin 1000MG 1,000 MG/7.5 ML SYR IV ONE (08:02)
[2020-09-13] MEDS ORDERED: BUPIVACAINE 0.5 % 5 MG/1 ML PF 10ML VIAL ONE (08:03)
[2020-09-13] MEDS ORDERED: hydroCHLOROthiazide 25 MG TAB PO SCH (09:00)
[2020-09-13] MEDS ORDERED: ASPIRIN CHEW 324 MG PO STA (09:27)
[2020-09-13] MEDS ORDERED: ASPIRIN 81 MG ECTAB PO ONE (09:30)
[2020-09-13] MEDS ORDERED: METOPROLOL TARTRATE 25 MG TAB PO ONE (09:30)
[2020-09-13] MEDS: amLODIPine BESYLATE 5 MG TAB PO SCH (09:56)
[2020-09-13] MEDS: POTASSIUM CHLORIDE 20 MEQ in LACTATED RINGER'S 1,000 ML IV SCH ×2 (09:57→23:28)
--- NOTE | 2020-09-13 12:18 | Cardiology Consultation ---
Date of Consultation I spent over 60 minutes during today's consultation reviewing the patient's history with the hospitalist service and communicating the need for repeat EGD and echocardiogram prior to the consultation. In addition I reviewed the consultation with the primary service. 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 Ultimately this led to a fall without loss of consciousness that led to hip fracture. Before that she is very active she is walking 4 miles in about an hour and a half. Her pace is unchanged she denies any chest tightness or chest pressure with activity. She is able to climb a flight of stairs without any difficulty. She does the grocery shopping and carries the groceries in the house without any anginal symptoms. At no time has she had any anginal symptoms. Her functional capacity is much greater than four METS. She has had palpitations or fluttering or feeling her heart racing. She has a lower extremity edema or symptoms of claudication. She denies any symptoms of orthopnea. She is in a moderate degree of discomfort after her fall and her blood pressure is elevated here in the hospital. The rest of a complete review of systems is otherwise negative September 13, 2020 History of Present Illness Attending Physician: Michell Grimaldo MD Allergies Allergy/AdvReac Type Severity Reaction Status Date / Time No Known Allergies Allergy Verified 09/12/20 18:17 Home Medications Medication Instructions Recorded Confirmed Type ergocalciferol (vitamin D2) 1,250 50,000 units PO .COMPLEX #12 cap 11/19/19 09/12/20 Rx mcg (50,000 unit) capsule hydrochlorothiazide 25 mg tablet 25 mg PO DAILY #30 tab 04/23/20 09/12/20 Rx alendronate 70 mg tablet 70 mg PO WK 04/28/20 09/12/20 History amlodipine 10 mg tablet 10 mg PO DAILY #90 tab 05/25/20 09/12/20 Rx Patient History Medical History Hyperlipidemia Hypertension Osteopenia Vitamin D deficiency Surgical History History of appendectomy History of colonoscopy No pertinent past surgical history Family History Aunt Breast cancer Uncle Myocardial infarction Mother Diabetes uncertain for sure but believe COPD (chronic obstructive pulmonary disease) Father Cancer Pancreatic Sister Vitamin D deficiency Denies family history of Ovarian cancer Prostate cancer Lung cancer Colorectal cancer Stroke Social History Smoking Status: Never smoker Second Hand Exposure: Yes; Hx Alcohol Use: No Hx Substance Use: No Preferred Language: [place] Communication Ability: Effective Visual Impairment: Limited Hearing Ability: Use of Hearing Aid Production Quality Analyst Required: No Beliefs That Will Affect Care: None marital status: Current Living Situation: Family current occupational status: retired Other Information That Helps Us Care for You: Yes (Whole foods Plant based, no oil diet) Feels Safe at Home: Yes Safety Concerns: Feels Safe At This Time Childhood Exposure to Second-Hand Smoke: Yes Diet Comment: Whole food plant base caffeine: Yes (sometime Tea) Dental Care, Regularly: Yes Physical Activity Frequency: 5-6 Times per Week Seatbelt Use: always Sunscreen Use: Yes Assistive Devices: Glasses Results & Data ([facility]) Vital Signs (Past 12 Hours) Vital Signs Temp Pulse Resp BP Pulse Ox 09/13/20 08:01 37.2 C 77 18 164/82 H 94 09/13/20 06:30 37.0 C 74 14 143/80 H 93 she is awake alert and oriented x3 she is in a moderate degree of hip pain HEENT: 2+ carotid upstrokes normal to carotid bruits jugular is pressure appeared normal Lungs: Clear to auscultation bilaterally no rales rhonchi wheezing Heart: Regular rate and rhythm no appreciable murmurs rubs or gallops Abdomen: Soft nontender senna positive bowel sounds Extremities: No clubbing cyanosis or edema Psychiatric: Her affect appeared appropriate Her EKG was reviewed normal sinus rhythm inferior lateral ST depression cannot rule out ischemia Echocardiogram essentially a normal echo without regional wall motion abnormalities or valvular heart disease and preserved left ventricular systolic function. That echo is unchanged from Impressions: 1. Preoperative valuation prior to repair of a hip fracture 2. Normal echocardiogram without evidence of regional wall motion abnormalities 3. Inferior lateral ST depression likely related to hypertension 4. Functional capacity that is much better than four METS 5. Hyponatremia and hypokalemia As I discussed with Meryl and the primary service I believe her risk of cardiac events is in the range of 2 to 3% with surgery this includes heart attack, dying from cardiac causes, heart failure and arrhythmias. Her functional capacity is excellent and she can walk 4 miles without any anginal symptoms. There is no reason she cannot proceed with surgery at the above-stated risk. She is receiving normal saline with potassium to replete her potassium and sodium. I would hold her HCTZ after the surgery until her electrolytes normalized. They were normal upon admission. Long-term she will need adequate blood pressure control once her pain is adequately treated. Thank you for allowing us to participate in her care
[2020-09-13] MEDS ORDERED: BUPIVACAINE 0.5 % 5 MG/1 ML MPF 30ML VIAL ONE (16:31)
[2020-09-13] MEDS ORDERED: LIDOCAINE/EPINEPHRINE 1% 20 ML VIAL ONE (16:31)
[2020-09-13] MEDS ORDERED: ePHEDrine sulfate 50 MG/ML AMP IV PRN (17:08)
[2020-09-13] MEDS ORDERED: HYDROmorphone INJ 1 MG/ML SYRINGE IV PRN (17:08)
[2020-09-13] MEDS ORDERED: ATROPINE SULFATE 0.1 MG/ML 10ML SYR IV PRN (17:08)
[2020-09-13] MEDS ORDERED: ONDANSETRON INJ 2 MG/ML 2 ML VIAL IV PRN (17:08)
--- NOTE | 2020-09-13 17:58 | Fluoroscopy Report ---
FL hip LT 2-3V CLINICAL HISTORY: LEFT TROCHNAIL COMPARISON STUDY: Pelvis and left hip radiographs September 12, 2020. FLUOROSCOPY TIME: 1 minute and 15 seconds. FLUOROSCOPIC IMAGES: 4 FINDINGS: Fluoroscopy was provided during internal fixation of the intertrochanteric fracture of the left femur with intramedullary keturah and trochanteric nail. Fracture alignment has improved and is near anatomic. There are no unexpected radiopaque foreign bodies. There is a distal screw. IMPRESSION: Fluoroscopy provided during internal fixation of the intertrochanteric fracture of the l eft femur. ACT 112: Negative or not required by law. Electronically signed by: Patrick Walker M.D. 09/13/2020 5:57 PM
--- NOTE | 2020-09-13 18:05 | Post Operative Brief Note ---
Immediate Post Op Note v1 Date of Surgery September 13, 2020 Pre & Post Diagnosis Operation Date: 09/13/20 09:00 Pre-Op Diagnosis: Fracture of left hip Post-Op Diagnosis: Fracture of left hip I identified the patient and participated in the time-out.: Yes Procedure Operation Date: 09/13/20 09:00 Actual Procedures p Open Reduction with Internal Fixation Left Hip(Left) - Mika Tatum MD Surgeon Mika Tatum MD Profile Saw Operator Geovanny Anderson MD Estimated Blood Loss 50 Findings Consistent with Post-Op Diagnosis Fluids 1100 cc Drains [place] Catheter Anesthesia Type Spinal MAC Complications none
--- NOTE | 2020-09-13 18:06 | Operative Report ---
Post Operative Report Pre & Post Diagnosis Operation Date: 09/13/20 09:00 Pre-Op Diagnosis: Fracture of left hip Post-Op Diagnosis: Fracture of left hip I identified the patient and participated in the time-out.: Yes Procedure Operation Date: 09/13/20 09:00 Actual Procedures p Open Reduction with Internal Fixation Left Hip(Left) - Mika Tatum MD Surgeon Mika Tatum MD Auxiliary Powerplant Operator Geovanny Anderson MD Estimated Blood Loss 50 Findings See Below Left intertrochanteric hip fracture, displaced Fluids 1100 cc Specimens n/a Drains [place] Anesthesia Type Spinal MAC Complications none Indications The patient is a 70 year old female who sustained a left hip fracture from a ground level fall. The patients treatment options of conservative versus surgical intervention were discussed. Since the patient was an ambulatory prior to the injury and to avoid the risks of bed sores, pulmonary complications, and to give the best chance for ambulation, I recommended surgery. The patient and family understands the risks of surgery, which include but are not limited to: bleeding, infection, re-operation, damage to nerves and arteries, continued pain, failure of the hardware, mal-union, non-union, DVT, and . In addition the patient is aware of the 20-30% morbidity associated with hip fracture for up to 1 year following a hip fracture. The patient and family u nderstands all of these instructions and explanations, all of their questions have been satisfactorily addressed. The patient has elected to proceed with surgery and the informed consent was signed. Description of Procedure IMPLANTS: 1) 11 MM SHORT TROCH NAIL (SYNTHES). 2) 11 X 105 MM HELICAL SCREW. 3) 5 X 36 MM LOCKING SCREW. PROCEDURE: The patient was taken to the Operating Room and placed in the supine position on the fracture table after spinal anesthesia was administered. A multidisciplinary time-out was performed identifying my initials on the left lower limb as the correct and operative limb. Prior to the incision being made, 1 gram of intravenous Ancef was given. Fluoroscopy was brought in to ensure adequate x-rays images could be obtained. A reduction was performed with traction, adduction, and internal rotation of the operative limb. Once this was confirmed with Fluro, the left lower extremity was prepped in the standard fashion. The trochanter was marked as was the planned incision and trajectory of the helical screw. The incisions were injected with a 50:50 mixture of 1% Lidocaine with epi and 0.5% Bupivacaine plain for a total of 10cc. The planned incision proximal to the greater trochanter was made and carried down through the Tensor Fascia Soila to expose the tip of the greater trochanter and the starting position. A starting guide wire was placed and the starting reamer was used to create the entry hole for the short implant. A size 11 was selected. The implant was then inserted without difficulty. Small second and third incisions were made for placement of the helical blade and distal locking screw. These were placed through the aiming guide in the standard fashion. The Helical blade was locked in place. The traction was released. Final x-rays were obtained showing TAD of less than 25mm. The wounds were copiously irrigated. The Tensor Fascia Soila was closed with 0 Vicryl. The subcutaneous tissue was closed with 3-0 Vicryl. The skin was closed with ZipLine and shield. The incisions were covered with 4x4s, ABD, and foam tape. The patient was transfer to her hospital bed and taken to the PACU in stable condition. The sponge and needle counts were correct. POST-OP INSTRUCTIONS: The patient was admitted to Telemetry. The patient will be WBAT with a walker. The patient will be seen by PT/OT. Her labs will be checked in the am. DVT prophylaxis will be with TEDs, mechanical devices and ASA for 6 weeks will be started. I attest to the content of the Intraoperative Record and any orders documented therein. Any exceptions are noted below.
--- NOTE | 2020-09-13 18:49 | Anesthesiology Progress Note ---
Date of Service September 13, 2020 Anesthesia Post Procedure Vital Signs Vital Signs: Temp Pulse Pulse Pulse Resp BP BP 09/13/20 18:40 36.6 C 68 15 09/13/20 18:30 68 17 09/13/20 18:20 70 17 09/13/20 18:12 36.5 C 73 16 09/13/20 14:00 37.5 C 68 09/13/20 08:01 37.2 C 77 18 164/82 H 09/13/20 06:30 37.0 C 74 14 143/80 H 09/12/20 23:33 37.5 C 71 14 145/77 H 09/12/20 20:00 37.2 C 86 14 155/75 H 09/12/20 19:00 80 17 138/79 BP Pulse Ox 09/13/20 18:40 137/74 95 09/13/20 18:30 152/90 H 97 09/13/20 18:20 131/87 98 09/13/20 18:12 122/87 96 09/13/20 14:00 162/84 H 93 09/13/20 08:01 94 09/13/20 06:30 93 09/12/20 23:33 96 09/12/20 20:00 95 09/12/20 19:00 Pain Intensity Left Hip: Pain Intensity: 2 Transfer of Care Handoff Completed per policy Notes Mental Status: alert / awake / arousable Patient Amnestic to Procedure: Yes Nausea / Vomiting: adequately controlled Pain: adequately controlled Airway Patency, RR, SpO2: stable & adequate BP & HR: stable & adequate Hydration State: stable & adequate Neuraxial Anesthesia: was administered and sensory block is resolving Anesthetic Complications: no major complications apparent
[2020-09-13] MEDS ORDERED: NALOXONE HCL 0.4 MG/1 ML VIAL/CARP IV PRN (19:15)
[2020-09-13] MEDS: DOCUSATE SODIUM/SENNA 50/8.6MG TAB PO SCH (22:01)
[2020-09-13] MEDS: ACETAMINOPHEN 325 MG TAB PO PRN (23:55)
[2020-09-14] MEDS: MoRPHine SULFATE 2 MG/ML CARP IV PRN ×2 (02:08→23:06)
--- NOTE | 2020-09-14 07:21 | Operative Report ---
Post Operative Report Pre & Post Diagnosis Operation Date: 09/13/20 09:00 Pre-Op Diagnosis: Fracture of left hip Post-Op Diagnosis: Fracture of left hip I identified the patient and participated in the time-out.: Yes Procedure Operation Date: 09/13/20 09:00 Actual Procedures p Open Reduction with Internal Fixation Left Hip(Left) - Mika Tatum MD Surgeon Mika Tatum MD Manager Of Environmental Services Geovanny Anderson MD Estimated Blood Loss 50 Findings Consistent with Post-Op Diagnosis Specimens none Anesthesia Type General Complications none Disposition Accompanied Patient To Recovery: Yes Disposition: Recovery Room Description of Procedure as per 's note, I assisted in prepping and draping, instruments handling, certain parts of the procedure and wound closure, I attest to the content of the Intraoperative Record and any orders documented therein. Any exceptions are noted below.
[2020-09-14 08:10] LABS: Basophils # (auto) 0.01 K/uL (0-0.2); Basophils % (auto) 0.1 %; Eosinophils # (auto) 0.01 K/uL (0-0.5); Eosinophils % (auto) 0.1 %; Hematocrit (blood only) 36.9 % (37-47); Hemoglobin 12.8 g/dL (12.0-16.0); Immature Granulocytes # (auto) 0.01 K/uL (0.00-0.02); Immature Granulocytes % (auto) 0.1 %; Lymphocytes # (auto) 0.61 K/uL (1.2-3.4); Lymphocytes % (auto) 7.4 %; Mean Corpuscular Hemoglobin 30.8 pg (25-34); Mean Corpuscular Hgb Conc 34.7 g/dL (32-36); Mean Corpuscular Volume 88.7 fL (80-100); Mean Platelet Volume 9.9 fL (7.4-10.4); Monocytes # (auto) 1.08 K/uL (0.11-0.59); Neutrophils # (auto) 6.57 K/uL (1.4-6.5); Neutrophils % (auto) 79.3 %; Platelet Count 217 K/uL (130-400); RDW Coefficient of Variation 13.3 % (11.5-14.5); RDW Standard Deviation 43.3 fL (36.4-46.3); Red Blood Count 4.16 M/uL (4.2-5.4); White Blood Count 8.29 K/uL (4.8-10.8)
--- NOTE | 2020-09-14 08:15 | Orthopedic Progress Note ---
Date of Service September 14, 2020 Assessment & Plan (1) Fracture of left hip: POD #1 s/p left hip ORIF, doing as well as expected. Resume diet. WBAT. OOB to chair. Continue pain control. Continue care per primary service. Plan change dressing to Silverlon 09/15/2020. DVT prophylaxis: TEDs 3 weeks, foot pumps while in hospital, ASA 81 mg BID for 6 weeks. PT/OT. D/C planning. Admission and Anticipated Discharge Date Admission Date: September 12, 2020 Subjective Left hip pain Review of Systems Review of Systems: All systems reviewed & are unremarkable except as noted in HPI & below Physical Exam Physical Exam: LLE: Sensation to light touch is intact. 2+ DP pulse. Wiggling toes and ankle. Calf is soft and non-tender. Dressing is clean, dry, intact. Results & Data ([facility]) Vital Signs (Past 12 Hours) Vital Signs Temp Pulse Pulse Pulse Resp BP Pulse Ox 09/14/20 07:50 37.6 C H 81 16 149/79 H 94 09/14/20 07:24 82 09/14/20 04:00 37.2 C 81 20 155/86 H 94 09/14/20 00:45 37.1 C 09/14/20 00:00 80 09/13/20 23:00 38.6 C H 90 20 155/80 H 91 09/13/20 21:15 37.2 C 20 148/79 H 95 09/13/20 20:15 36.3 C L 76 16 141/81 H 95 Laboratory Results 09/14/20 09/14/20 09/13/20 Range/Units 08:02 08:02 20:33 WBC 8.29 (4.8-10.8) K/uL RBC 4.16 L (4.2-5.4) M/uL Hgb 12.8 (12.0-16.0) g/dL Hct 36.9 L (37-47) % MCV 88.7 (80-100) fL MCH 30.8 (25-34) pg MCHC 34.7 (32-36) g/dL RDW Std Deviation 43.3 (36.4-46.3) fL RDW Coeff of Scar 13.3 (11.5-14.5) % Plt Count 217 (130-400) K/uL MPV 9.9 (7.4-10.4) fL Immature Gran % (Auto) 0.1 % Neut % (Auto) 79.3 % Lymph % (Auto) 7.4 % [place] % (Auto) 13.0 % Eos % (Auto) 0.1 % Baso % (Auto) 0.1 % Neut # (Auto) 6.57 H (1.4-6.5) K/uL Lymph # (Auto) 0.61 L (1.2-3.4) K/uL [place] # (Auto) 1.08 H (0.11-0.59) K/uL Eos # (Auto) 0.01 (0-0.5) K/uL Baso # (Auto) 0.01 (0-0.2) K/uL Immature Gran # (Auto) 0.01 (0.00-0.02) K/uL Sodium 135 L (136-145) mmol/L Potassium 3.6 (3.5-5.1) mmol/L Chloride 101 (98-107) mmol/L Carbon Dioxide 28 (21-32) mmol/L Anion Gap 6.0 (3-11) BUN 14 (7-18) mg/dl Creatinine 0.75 (0.6-1.2) mg/dl Est Cr Clr Drug Dosing 70.4 ml/min Est GFR ( Amer) 93.6 Est GFR (Non-Af Amer) 80.8 BUN/Creatinine Ratio 18.8 (10-20) Glucose 120 H (70-99) mg/dl Calcium 8.8 (8.5-10.1) mg/dl Magnesium 1.9 (1.8-2.4) mg/dl Troponin I 0.036 0.042 (0-0.045) ng/ml 25-OH Vitamin D Total (30-100) ng/ml 09/13/20 09/13/20 09/13/20 Range/Units 11:17 09:32 08:09 WBC (4.8-10.8) K/uL RBC (4.2-5.4) M/uL Hgb (12.0-16.0) g/dL Hct (37-47) % MCV (80-100) fL MCH (25-34) pg MCHC (32-36) g/dL RDW Std Deviation (36.4-46.3) fL RDW Coeff of Scar (11.5-14.5) % Plt Count (130-400) K/uL MPV (7.4-10.4) fL Immature Gran % (Auto) % Neut % (Auto) % Lymph % (Auto) % [place] % (Auto) % Eos % (Auto) % Baso % (Auto) % Neut # (Auto) (1.4-6.5) K/uL Lymph # (Auto) (1.2-3.4) K/uL [place] # (Auto) (0.11-0.59) K/uL Eos # (Auto) (0-0.5) K/uL Baso # (Auto) (0-0.2) K/uL Immature Gran # (Auto) (0.00-0.02) K/uL Sodium (136-145) mmol/L Potassium (3.5-5.1) mmol/L Chloride (98-107) mmol/L Carbon Dioxide (21-32) mmol/L Anion Gap (3-11) BUN (7-18) mg/dl Creatinine (0.6-1.2) mg/dl Est Cr Clr Drug Dosing ml/min Est GFR ( Amer) Est GFR (Non-Af Amer) BUN/Creatinine Ratio (10-20) Glucose (70-99) mg/dl Calcium (8.5-10.1) mg/dl Magnesium (1.8-2.4) mg/dl Troponin I 0.045 0.046 H* (0-0.045) ng/ml 25-OH Vitamin D Total 32.5 (30-100) ng/ml (1) Fracture of left hip Encounter type: initial encounter Fracture type: closed Qualified Code(s): S72.002A - Fracture of unspecified part of neck of left femur, initial encounter for closed fracture
[2020-09-14] MEDS: amLODIPine BESYLATE 5 MG TAB PO SCH (08:34)
[2020-09-14 08:35] LABS: BUN Creatinine Ratio 18.8 (10-20); Calcium 8.8 mg/dl (8.5-10.1); Creatinine Clr Calc Pharmacy 70.4 ml/min; Est GFR (African American) 93.6; Est GFR (Non-African American) 80.8; Magnesium 1.9 mg/dl (1.8-2.4); Potassium 3.6 mmol/L (3.5-5.1)
[2020-09-14 08:40] LABS: Troponin I 0.036 ng/ml (0-0.045)
--- NOTE | 2020-09-14 08:58 | Cardiology Progress Note ---
Date of Service September 14, 2020 Assessment & Plan (1) Hypertension: Ms. Alexander is doing well and has no complaints other than her surgical site pain Her EKG on 09/13 was normal sinus rhythm inferior lateral ST depression cannot rule out ischemia. She did not every have symptoms concerning for ischemia such as chest pain or pressure or sob. Echocardiogram essentially a normal echo without regional wall motion abnormalities or valvular heart disease and preserved left ventricular systolic function. That echo is unchanged from 2019 Impressions: 1. Preoperative evaluation prior to repair of a hip fracture 2. Normal echocardiogram without evidence of regional wall motion abnormalities 3. Inferior lateral ST depression likely related to hypertension 4. Functional capacity that is much better than four METS 5. Hyponatremia and hypokalemia HCTZ can resume tomorrow if Ms Alexander is eating well. Her sodium is just under normal and her potassium has normalized, kidney function is stable. We discussed home blood pressure monitoring which she should do daily and keep a log. She should take her pressures at different times of day after sitting quietly for at least five minutes. Further titration of her blood pressure medications can be done outpatient. Ms. Alexander can be moved off of telemetry. Cardiology will sign off at this time. Thank you for involving us in the care of this patient Admission and Anticipated Discharge Date Admission Date: September 12, 2020 Subjective Ms. Alexander is feeling well. She has not been out of bed post op. She denies chest pain, palpitations, sob, or dizziness. She did not have any events overnight on the monitor and maintained a sinus rhythm. Blood pressures have been running 140s-150s systolically over the night and today. Review of Systems Review of Systems: All systems reviewed & are unremarkable except as noted in HPI & below Physical Exam Constitutional: WD/WN, vitals as above Respiratory: normal respiratory effort, lungs clear to auscultation Cardiovascular: RRR, no murmur, no edema Skin: no rashes, warm and dry Neurologic: moves all extremities and awake Psychiatric: A+Ox3, euthymic affect Results & Data ([facility]) Vital Signs (Past 12 Hours) Vital Signs Temp Pulse Pulse Resp BP Pulse Ox 09/14/20 07:50 37.6 C H 81 16 149/79 H 94 09/14/20 07:24 82 09/14/20 04:00 37.2 C 81 20 155/86 H 94 09/14/20 00:45 37.1 C 09/14/20 00:00 80 09/13/20 23:00 38.6 C H 90 20 155/80 H 91 09/13/20 21:15 37.2 C 20 148/79 H 95 (1) Hypertension Hypertension type: essential hypertension Qualified Code(s): I10 - Essential (primary) hypertension
[2020-09-14] MEDS ORDERED: ASPIRIN 81 MG ECTAB PO SCH (09:00)
[2020-09-14] MEDS: ACETAMINOPHEN 325 MG TAB PO PRN (11:51)
[2020-09-14] MEDS: POTASSIUM CHLORIDE 20 MEQ in LACTATED RINGER'S 1,000 ML IV SCH (11:51)
--- NOTE | 2020-09-14 14:01 | Electrocardiogram Report ---
Test Reason : Blood Pressure : / mmHG Vent. Rate : 074 BPM Atrial Rate : 074 BPM P-R Int : 184 ms QRS Dur : 102 ms QT Int : 424 ms P-R-T Axes : 060 001 -13 degrees QTc Int : 470 ms Normal sinus rhythm Possible Left atrial enlargement Incomplete right bundle branch block Abnormal ECG No previous ECGs available Confirmed by Ezequiel Jones ([id number]) on 09/14/2020 2:01:20 PM Referred By: REFERRED SELF Confirmed By:Ezequiel Jones
--- NOTE | 2020-09-14 14:05 | Electrocardiogram Report ---
Test Reason : Blood Pressure : / mmHG Vent. Rate : 072 BPM Atrial Rate : 072 BPM P-R Int : 188 ms QRS Dur : 106 ms QT Int : 428 ms P-R-T Axes : 055 007 -08 degrees QTc Int : 468 ms Normal sinus rhythm Incomplete right bundle branch block Nonspecific ST abnormality Abnormal ECG When compared with ECG of 13-SEP-2020 07:27, (unconfirmed) No significant change was found Confirmed by Ezequiel Jones ([id number]) on 09/14/2020 2:05:16 PM Referred By: REFERRED SELF Confirmed By:Ezequiel Jones
--- NOTE | 2020-09-14 14:16 | Electrocardiogram Report ---
Test Reason : Blood Pressure : / mmHG Vent. Rate : 068 BPM Atrial Rate : 068 BPM P-R Int : 184 ms QRS Dur : 098 ms QT Int : 436 ms P-R-T Axes : 055 -02 -03 degrees QTc Int : 463 ms Normal sinus rhythm Possible Left atrial enlargement Incomplete right bundle branch block Nonspecific ST and T wave abnormality Abnormal ECG When compared with ECG of 13-SEP-2020 09:48, (unconfirmed) No significant change was found Confirmed by Ezequiel Jones ([id number]) on 09/14/2020 2:15:28 PM Referred By: REFERRED SELF Confirmed By:Ezequiel Jones
[2020-09-14] MEDS: HYDROCODONE/ACETAMOPHEN 5/325MG TAB PO PRN (15:48)
[2020-09-14] MEDS: ASPIRIN 81 MG ECTAB PO SCH (20:22)
[2020-09-14] MEDS: DOCUSATE SODIUM/SENNA 50/8.6MG TAB PO SCH (20:22)
--- NOTE | 2020-09-14 21:48 | Hospitalist Progress Note ---
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 Hx Osteoporosis and VIt D deficiency on oral and injections Q3M. Orthopedics consulted -- Dr. Tatum S/P repair Pain controlled. (2) Hypertension: Chronic. Typically controlled but some elevations due to pain Typically on HCTZ 25mg and amlodipine 10mg daily --> Hydrochlorothiazide held this morning but continued amlodipine 10mg (increased in past year from 7.5mg to 10mg daily) . --> Given dose of low-dose metoprolol given her right bundle branch block on EKG Also ordered aspirin 81 mg daily which we will continue at discharge pathology given her significant hypertensive history tinue to monitor (3) Hyperlipidemia: History of but diet controlled, not on medications Lipid panel acceptable -- triglycerides 46, cholesterol 195, LDL 110, HDL 76 Aspirin as above (4) Vitamin D deficiency: Patient Vitamin D2 every other week (5) Osteoporosis: on Fosamax- Ortho hold for 3 months DVT Prophylaxis -- SCDs transfer, Gage horowitz --Chemical proph following surgery Admission and Anticipated Discharge Date Admission Date: September 12, 2020 Review of Systems Review of Systems: REVIEW OF SYSTEMS: Constitutional: No fever, sweats or chills Eyes: No diplopia, no worsening or blurred vision ENT: normal hearing, no trouble swallowing Respiratory: No cough, sputum, dyspnea at rest or on exertion Cardiovascular: No chest pain, tightness or palpitations Abdomen: No pain, nausea, vomiting, diarrhea or constipation Musculoskeletal:(+) per HPI joint pain, NO calf pain, swelling Neurologic: No weakness, numbness/tingling, or balance problems Psychiatric: No anxiety or depression Skin: No rash or itch Physical Exam Physical Exam: General: awake, alert, no apparent distress, comfortable laying in bed Head: Normocephalic, atraumatic ENT: PERRL, EOMI, no pharyngeal exudate, mucous membranes moist Neuro: AAO x 3, speech clear and appropriate, strength intact bilaterally 5/5, sensation intact and equal all extremities and dermatomes, no pronator drift Chest: equal rise and fall of the chest, no accessory muscle use, no heaves or thrills, Clear to auscultation, on room air, Cardiac: Regular rate and rhythm, no murmur rub or gallop. kkin warm dry, cap refill <3 seconds, peripheral pulses +2, no JVD, no edema GI: NABS x 4 quadrants, soft, nontender to palpation, no rebound, guarding or tenderness Extremities: no peripheral edema or erythema, calfs nontender to palpation. Her left lower extremity is shortened and externally rotated. Neurovascularly intact with pulses palpable bilaterally to the dorsalis pedis and posterior tibial artery Psych: Normal mood and affect Skin: no rash or erythema Results & Data Results & Data ([facility]) Vital Signs (Past 12 Hours) Vital Signs Temp Pulse Pulse Resp BP Pulse Ox 09/14/20 19:43 36.5 C 79 18 121/69 93 09/14/20 15:55 84 09/14/20 15:50 37.3 C 83 16 147/83 H 92 09/14/20 11:41 36.9 C 86 16 158/87 H 94 PG Care Time/CCT Total # of Minutes Spent Total Time Spent with Patient: Total time spent is greater than 50% in coordination of care (as documented) at patient's floor/unit and/or counseling patient: Coding Level of Care Code 05312 Subseq Hosp Care Lvl 2 Diagnoses Fracture of left hip S72.002A Encounter type: initial encounter Fracture type: closed Hypertension I10 Hypertension type: essential hypertension Hyperlipidemia E78.5 Hyperlipidemia type: unspecified Vitamin D deficiency E55.9 Osteoporosis M81.0 Osteoporosis type: unspecified Presence of current pathological fracture: without current pathological fracture Time Spent (min) 25 (1) Osteoporosis Osteoporosis type: unspecified Presence of current pathological fracture: without current pathological fracture Qualified Code(s): M81.0 - Age-related osteoporosis without current pathological fracture (2) Hyperlipidemia Hyperlipidemia type: unspecified Qualified Code(s): E78.5 - Hyperlipidemia, unspecified (3) Fracture of left hip Encounter type: initial encounter Fracture type: closed Qualified Code(s): S72.002A - Fracture of unspecified part of neck of left femur, initial encounter for closed fracture (4) Hypertension Hypertension type: essential hypertension Qualified Code(s): I10 - Essential (primary) hypertension
[2020-09-15] MEDS: POTASSIUM CHLORIDE 20 MEQ in LACTATED RINGER'S 1,000 ML IV SCH (01:59)
[2020-09-15 08:04] LABS: Basophils # (auto) 0.03 K/uL (0-0.2); Basophils % (auto) 0.4 %; Eosinophils # (auto) 0.09 K/uL (0-0.5); Eosinophils % (auto) 1.1 %; Hematocrit (blood only) 33.5 % (37-47); Hemoglobin 11.4 g/dL (12.0-16.0); Immature Granulocytes # (auto) 0.03 K/uL (0.00-0.02); Immature Granulocytes % (auto) 0.4 %; Lymphocytes # (auto) 0.95 K/uL (1.2-3.4); Lymphocytes % (auto) 11.5 %; Mean Corpuscular Hemoglobin 30.6 pg (25-34); Mean Corpuscular Volume 89.8 fL (80-100); Mean Platelet Volume 10.1 fL (7.4-10.4); Monocytes # (auto) 0.98 K/uL (0.11-0.59); Monocytes % (auto) 11.9 %; Neutrophils # (auto) 6.16 K/uL (1.4-6.5); Neutrophils % (auto) 74.7 %; Platelet Count 209 K/uL (130-400); RDW Coefficient of Variation 13.4 % (11.5-14.5); RDW Standard Deviation 44.5 fL (36.4-46.3); Red Blood Count 3.73 M/uL (4.2-5.4); White Blood Count 8.24 K/uL (4.8-10.8)
[2020-09-15 08:35] LABS: BUN Creatinine Ratio 13.7 (10-20); Calcium 8.7 mg/dl (8.5-10.1); Creatinine Clr Calc Pharmacy 68.6 ml/min; Est GFR (African American) 90.7; Est GFR (Non-African American) 78.2; Magnesium 1.9 mg/dl (1.8-2.4); Potassium 3.6 mmol/L (3.5-5.1)
[2020-09-15] MEDS: ASPIRIN 81 MG ECTAB PO SCH (08:37)
[2020-09-15] MEDS: amLODIPine BESYLATE 5 MG TAB PO SCH (08:37)
[2020-09-15] MEDS: MoRPHine SULFATE 2 MG/ML CARP IV PRN (09:12)
--- NOTE | 2020-09-15 10:44 | Orthopedic Progress Note ---
Date of Service September 15, 2020 Assessment & Plan (1) Fracture of left hip: POD #2 s/p left hip ORIF, doing as well as expected. Resume diet. WBAT. OOB to chair. Continue pain control. Continue care per primary service. Dressing changed to Silverlon today DVT prophylaxis: TEDs 3 weeks, foot pumps while in hospital, ASA 81 mg BID for 6 weeks. PT/OT. D/C planning - okay from ortho standpoint when medically stable. I, Dr. Tatum, saw and examined the patient and discussed the management with my PA. I reviewed my PAs note and agree with the documented findings and the plan of care I developed. Admission and Anticipated Discharge Date Admission Date: September 12, 2020 Subjective Doing well, no complaints of pain in left hip at rest. Mild pain with movement of left hip. Tolerating regular diet. Denies chest pain or shortness of breath. Physical Exam Physical Exam: Left hip incisions clean, dry and intact. Zip-line in place left hip incisions. No active drainage. No surrounding hematoma or seroma. Tolerates active knee ROM to about 20 degrees. Unable to independently SLR left leg due to discomfort. Tolerates passive ROM of left hip without discomfort. Calves supple, nontender to palpation. Distal pulse 1+, Strength 5/5. Full ankle ROM. Distal sensation intact. No left knee effusion Results & Data ([facility]) Vital Signs (Past 12 Hours) Vital Signs Temp Pulse Resp BP Pulse Ox 09/15/20 07:06 36.9 C 80 18 151/82 H 94 09/14/20 23:15 37.0 C 81 18 152/80 H 92 Laboratory Results 09/15/20 09/15/20 Range/Units 07:37 07:37 WBC 8.24 (4.8-10.8) K/uL RBC 3.73 L (4.2-5.4) M/uL Hgb 11.4 L (12.0-16.0) g/dL Hct 33.5 L (37-47) % MCV 89.8 (80-100) fL MCH 30.6 (25-34) pg MCHC 34.0 (32-36) g/dL RDW Std Deviation 44.5 (36.4-46.3) fL RDW Coeff of Scar 13.4 (11.5-14.5) % Plt Count 209 (130-400) K/uL MPV 10.1 (7.4-10.4) fL Immature Gran % (Auto) 0.4 % Neut % (Auto) 74.7 % Lymph % (Auto) 11.5 % [place] % (Auto) 11.9 % Eos % (Auto) 1.1 % Baso % (Auto) 0.4 % Neut # (Auto) 6.16 (1.4-6.5) K/uL Lymph # (Auto) 0.95 L (1.2-3.4) K/uL [place] # (Auto) 0.98 H (0.11-0.59) K/uL Eos # (Auto) 0.09 (0-0.5) K/uL Baso # (Auto) 0.03 (0-0.2) K/uL Immature Gran # (Auto) 0.03 H (0.00-0.02) K/uL Sodium 136 (136-145) mmol/L Potassium 3.6 (3.5-5.1) mmol/L Chloride 103 (98-107) mmol/L Carbon Dioxide 28 (21-32) mmol/L Anion Gap 5.0 (3-11) BUN 11 (7-18) mg/dl Creatinine 0.77 (0.6-1.2) mg/dl Est Cr Clr Drug Dosing 68.6 ml/min Est GFR ( Amer) 90.7 Est GFR (Non-Af Amer) 78.2 BUN/Creatinine Ratio 13.7 (10-20) Glucose 103 H (70-99) mg/dl Calcium 8.7 (8.5-10.1) mg/dl Magnesium 1.9 (1.8-2.4) mg/dl (1) Fracture of left hip Encounter type: initial encounter Fracture type: closed Qualified Code(s): S72.002A - Fracture of unspecified part of neck of left femur, initial encounter for closed fracture
[2020-09-15] MEDS: HYDROCODONE/ACETAMOPHEN 5/325MG TAB PO PRN ×2 (10:54→16:10)
--- NOTE | 2020-09-23 09:11 | Discharge Summary ---
Date of Service September 15, 2020 Admission HPI Per Admitting Provider 70 YOF with past medical history of osteopetrosis, on vitamin D supplementation, and started on Fosamax in 01/2020, HLD, HTN. Her HLD is controlled with diet on plant based diet, she also is active particpant in the silver sneakers program, which she has done to help her lose weight. Patient was at home today emptying the scrap cutter. She turned to go put a bowl away, forgetting that the door was open, and she tripped over the door to the scrap cutter. She landed directly on her left hip and the bowl she had broke cutting her left palmar surface. Her TD was in . She had immediate pain to the hip without any NV complaints. She was able to scoot herself to a carpeted area and wait for her . He came back in the house about 20 min later and they called 911. In the EMD the patient had a hip/pelvis Xray that showed left intertrochanteric proximal femur fracture, she had a alvares catheter placed, her hand was dressed with steri strips by [facility] Dr. Deleon, received Tylenol 1GM IV and 6 mg morphine total. Her pain is controlled, her left leg is laterally rotated, and hemodynamically stable. Orthopaedics was evaluating the patient as I was leaving, as they have been already consulted. The patient will be admitted to Med/Surg floor, VTE prophy, pain control, NPO after mn. Patient had an ECHO in 2019 for HTN- with EF 65-70%, normal wall motion and normal MV and AV. Principal Diagnosis Fracture of left hip Discharge Exam General: awake, alert, no apparent distress, comfortable laying in bed Head: Normocephalic, atraumatic ENT: PERRL, EOMI, no pharyngeal exudate, mucous membranes moist Neuro: AAO x 3, speech clear and appropriate, strength intact bilaterally 5/5, sensation intact and equal all extremities and dermatomes, no pronator drift Chest: equal rise and fall of the chest, no accessory muscle use, no heaves or thrills, Clear to auscultation, on room air, Cardiac: Regular rate and rhythm, no murmur rub or gallop. kkin warm dry, cap refill <3 seconds, peripheral pulses +2, no JVD, no edema GI: NABS x 4 quadrants, soft, nontender to palpation, no rebound, guarding or tenderness Extremities: no peripheral edema or erythema, calfs nontender to palpation. Her left lower extremity is shortened and externally rotated. Neurovascularly intact with pulses palpable bilaterally to the dorsalis pedis and posterior tibial artery Psych: Normal mood and affect Skin: no rash or erythema Discharge Data Allergies Allergy/AdvReac Type Severity Reaction Status Date / Time No Known Allergies Allergy Verified 09/12/20 18:17 Consultations 09/12/20 17:15 ED Decision to Admit Stat 09/12/20 20:14 Consult Anesthesiology Routine Consult Orthopedic Surgery Routine 09/13/20 12:39 Consult Cardiology Routine Procedures Performed Operation Date: 09/13/20 09:00 Actual Procedures p Open Reduction with Internal Fixation Left Hip(Left) - Mika Glo Tatum MD Ordered Studies 09/13/20 FL hip LT 2-3V Routine Hospital Course (1) Fracture of left hip: Acute left intertrochanteric proximal femur fracture after falling over scrap cutter at home. Hx Osteoporosis and VIt D deficiency on oral and injections Q3M. Orthopedics consulted -- Dr. Tatum S/P repair Pain controlled. (2) Hypertension: Chronic. Typically controlled but some elevations due to pain Typically on HCTZ 25mg and amlodipine 10mg daily --> Hydrochlorothiazide held this morning but continued amlodipine 10mg (increased in past year from 7.5mg to 10mg daily) . --> Given dose of low-dose metoprolol given her right bundle branch block on EKG Also ordered aspirin 81 mg daily which we will continue at discharge pathology given her significant hypertensive history tinue to monitor will resume HCTZ at discharge (3) Hyperlipidemia: History of but diet controlled, not on medications Lipid panel acceptable -- triglycerides 46, cholesterol 195, LDL 110, HDL 76 Aspirin as above (4) Vitamin D deficiency: Patient Vitamin D2 every other week (5) Osteoporosis: on Fosamax- Ortho hold for 3 months DVT Prophylaxis -- SCDs transfer, Gage horowitz --Chemical proph following surgery Total Time Total Time Spent Total Time Spent (In Minutes): 32 Total Time Includes: Examination of the Patient, Discharge Planning and Medication Reconciliation Discharge Plan Discharge Items Patient Disposition: Transfer Inpatient Rehab Fac Reason For Visit: FALL,BROKEN LEFT PROXIMAL FEMUR Discharge Diagnosis: Left proximal femur fracture Activity: Per Instructions section Weightbearing: Left weightbearing Weightbearing Comment: with walker or crutches Non-emergency contact: Surgeon Call non-emergency contact if: your pain is not controlled, your pain is concerning for you, your wound has increased redness and your wound has increased drainage Follow-up/Referrals: Ezequiel Gonzalez MD [Primary Care Provider] - Mika Tatum MD [Physician] - 09/29/20 11:00 am Diet: Regular Addtl Attending Provider Instructions: Resume HCTZ. We discussed home blood pressure monitoring which she should do daily and keep a log. Please take her pressures at different times of day after sitting quietly for at least five minutes. Further titration of her blood pressure medications can be done outpatient. Addtl Census Enumerator Provider Instructions: New Medicine: * You will likely be taking one or more of these medicines: 1. oxycodone - Take, as directed, when you need it, every four to six hours to control your pain. 2. Iron Sulfate - Take three times each day for the month after surgery to help you replace the blood lost during surgery. Over the counter. 3. Vitamin C- take twice daily while on Iron - over the counter 4. Colace - take twice daily while on pain medication - over the counter 5. Aspirin - take twice daily x 6 weeks to prevent blood clots. Take with food. Over the counter. * The most common side effects of pain medicine and iron are nausea and constipation. If nausea or constipation is too much of a problem or if you have any questions about your new medicines or doses, call [facility] at . We will try to help you manage these issues. "VERY IMPORTANT TO READ AND REVIEW" Blood Clots and Blood Thinning Medicine: * You are given Aspirin during the immediate post-operative period to lessen the risk of blood clots forming in your legs and/or lungs. Aspirin is usually given for 4-6 weeks after surgery. Pain: * The immediate post-operative period after hip surgery is often quite painful. * You are given a prescription for pain medicine. You should take it, as directed, when you need it, especially before physical therapy and before going to bed. Pain that interferes with sleep is very common and can last several months. * You will likely need pain medicine for the first two to four weeks. It will not stop all of the pain. The pain will lessen and as you feel better, you may change to milder pain medicine such as Tylenol. * The most common side effects of pain medicine are nausea and constipation, so don't take more than you need. Dressings: * Keep Silverlon dressing in place left hip. Do not remove, you may shower with this dressing in place. Physical Therapy: * Follow the range of motion instructions given to you by the therapist in the hopspital. You may do full range of motion on your left hip as tolerated. * You may weight bear as tolerated on your left hip with the assistance of a walker. * You may do strengthening and stretching exercises as tolerated of your left leg * You will need a walker/crutches to assist with ambulation. * In some cases, the social worker clinical at the hospital will arrange to have a therapist come to your house for the first couple of weeks to help you learn these skills. * You need to practice on your own or with the help of a family member as needed. * When you learn these skills, most of the therapy can be done on your own. Home Exercise: * You were shown a series of exercises in the hospital. Do these exercises three to four times each day including the exercises you were shown in physical therapy. Walking: * Get up and walk several times each day. For the first four weeks, try not to stand or walk for more than one hour at a time. If you do stand or walk for more than one hour, you will not hurt anything, but your leg will likely swell. * As you feel comfortable, you may change from the walker or crutches to a cane and then to independent walking. SELF CARE INSTRUCTIONS AFTER TOTAL HIP REPLACEMENT Until the incision and soft tissues around your hip have healed, there is a pos sibility that the hip prosthesis could dislocate. A. You may weight bear as tolerated left hip. B. Your balance may be shaky for a while. Use crutches or a walker until directed by your doctor. C. Use hand rails when walking on stairs. D. Wear low heeled shoes with non-slip soles. E. Be sure that your floors are free of things that could trip you - throw rugs, electrical cords, small objects. Avoid wet and waxed floors, especially with crutches and canes. F. Try to walk several times a day with rest periods between. G. Continue with all the exercises taught to you in the hospital. Again, make walking a part of your daily routine. VERY IMPORTANT TO READ AND REVIEW A. Take Asprin (blood thinning medications) as directed by your doctor. B. There are a few signs you need to watch for after you are home. If you notice any of the followin. Increased severe hip pain. Some pain is expected especially when you exercise. 2. Increased swelling in your leg or knee; pain or swelling of the calf muscle in either lower leg. 3. Any fluid drainage from the incision. 4. Shortness of breath or chest pain. TEDs/Elastic Stockings: * The white elastic stockings help limit swelling and prevent blood clots from forming in your legs. The more you wear them, the more they work. * Wear them for six weeks. Prevention of Infection: * Take antibiotics one hour before any dental cleaning, dental work, urological procedure, gastrointestinal procedure or any invasive surgery in order to prevent your new joint from getting infected. * You may get the antibiotics from the doctor performing the procedure or we will call in a prescription to the pharmacy of your choice. Call the office for a prescription at least 2 days prior to your appointment. Things to Watch For: * Drainage from the incision site that occurs more than one week after your surgery. * Severely increased leg pain or swelling. * Increased redness at the incision site. * Fever above 101 degrees Fahrenheit. * Unusual chest pain or shortness of breath. * Unusual pain or burning with urination. Pending Studies at Discharge: No Stand-Alone Forms: [facility] Skilled Items Patient informed of condition?: Yes DNR: No Discharge Level of Care: Acute rehab Communicable Disease: No Discharge Prognosis: Stable Lines: None Urinary Catheter: No Medications and DC Order Prescriptions: New aspirin 81 mg Tablet,Delayed Release (Dr/Ec) 81 mg PO BID Qty: 60 RF: 0 acetaminophen 325 mg Tablet 650 mg PO Q6H PRN (Reason: pain) Qty: 60 RF: 0 oxycodone 5 mg tablet 5 mg PO Q6H PRN (Reason: severe pain (scale score 7-10)) Qty: 15 RF: 0 sennosides-docusate sodium [Senokot-S] 8.6-50 mg Tablet 2 tab PO HS Qty: 30 RF: 0 magnesium hydroxide [Milk of Magnesia] 400 mg/5 mL Suspension 30 ml PO DAILY PRN (Reason: constipation) Qty: 3000 RF: 0 polyethylene glycol 3350 [Miralax] 17 gram/dose powder 17 g PO DAILY PRN (Reason: until she has one BM) Qty: 119 RF: 0 Continued hydrochlorothiazide 25 mg tablet 25 mg PO DAILY Qty: 30 RF: 5 amlodipine 10 mg tablet 10 mg PO DAILY Qty: 90 RF: 3 alendronate [Fosamax] 70 mg tablet 70 mg PO WK RF: 0 ergocalciferol (vitamin D2) 1,250 mcg (50,000 unit) capsule 50,000 units PO .COMPLEX Qty: 12 RF: 3 Discharge Orders: Discharge Order (Routine); Ordered 09/15/20 Ordered By: Jp Sandoval Admission Data Admit Date/Time: 09/12/20 18:40 Attending Provider: Jp Sandoval Admit Provider: Toby Carrera Primary Care Provider: Ezequiel Gonzalez Other Providers: Toby Carrera ; Zoila Marx ; Yvette Romo ; Maribel Bucio ; Rosa Vigil ; Juani Akins ; Kalani Moreno ; Rocky Owens ; Adolfo Jacob ; Duran Trent ; Isaiah Reyes ; Siri Reyes ; Torres [place] ; Julia Hui ; Bernardo Schaefer ; Christopher Miller ; Pal Villar ; Christo Gutiérrez ; Guerita Peña ; Randy Lopez ; Vida Patel ; Anay Lopez ; Pierce Zaragoza ; Gloria Chapa ; Ricardo Tolliver ; Becca Lemus ; Adriana Graves ; Gloria Burks ; Laura Stringer ; [place] ; Lesa Casas ; Anju Meza ; Mariam Medina ; Talia Rodriguez ; Joni Rodriguez V ; Jamel Lackey ; Maribel Mendiola ; Kasi [place] ; Inderjit Grayson ; Nena Lowe ; Sammie Loja ; Joni Tran ; Lion Peña ; Kirt Salcedo ; Mireya Loya ; Mariam Morales ; Nawaf Khan ; Rd Gutiérrez ; Renetta Pino ; Randy Aaron ; Seth Obrien ; David Hernandez ; Zack Michelle ; Mika Tatum ; Melquiades Jerome ; [facility] Coding Level of Care Code D/C Day Management >30 mins Diagnoses Fracture of left hip S72.002A Encounter type: initial encounter Fracture type: closed Hypertension I10 Hypertension type: essential hypertension Hyperlipidemia E78.5 Hyperlipidemia type: unspecified Vitamin D deficiency E55.9 Osteoporosis M81.0 Osteoporosis type: unspecified Presence of current pathological fracture: without current pathological fracture
== END 2020-09-15 17:30 | DRG 481 ==
LOC: ED 15:16 → SUATTDRO 18:40 → 3N 18:40 → 2N 09-13 09:02 → 2W 09-13 14:01